=== PATIENT | male | born 1955 | race Caucasian/White ===

== ENCOUNTER 2016-11-27 01:14 | Inpatient (IN) ==
[2016-11-27] MEDS ORDERED: ASPIRIN 325 MG TABLET PO STA (02:10)
[2016-11-27] MEDS ORDERED: NITROGLYCERIN 2% OINT 1 INCH/GM PACK TOP STA (02:10)
[2016-11-27] MEDS ORDERED: MORPHINE 2 MG/1 ML SYRINGE IV STA (02:10)
[2016-11-27] MEDS ORDERED: ALUM/MAG/SIMETH/LIDO VISC 1:1 30 ML BOTTLE PO STA (02:10)
[2016-11-27] MEDS ORDERED: LORazepam 1 MG TABLET PO STA (02:10)
[2016-11-27] MEDS ORDERED: ONDANSETRON 4 MG/2 ML VIAL IV STA (02:10)
--- NOTE | 2016-11-27 02:14 | EKG Report ---
Stationary ECG Study [facility] ER Test Date: 11/27/2016 1:25:55 AM Pat Name: ADONAY DILLARD Department: Room: EDWAIT Gender: M Dyer And Washer: SR : 1955 Requested by: Rajat Flores Order Number: [id number] Cyrus MD: LINN RODRIGUEZ Intervals [place] Rate: 86 P: 35 ID: [id number] QRS: -19 QRSD: 122 T: -51 QT: 375 QTc: 419 Interpretive Statements SINUS RHYTHM WITH FREQUENT VENTRICULAR PREMATURE COMPLEXES INFERIOR MYOCARDIAL INFARCTION, OF INDETERMINATE AGE Electronically Signed On 11-27-16 04:36:32 UTILITY ASSEMBLER by LINN RODRIGUEZ [id number]
[2016-11-27] MEDS ORDERED: NITROGLYCERIN 2% OINT 1 INCH/GM PACK TOP ONE (02:24)
[2016-11-27] MEDS ORDERED: ONDANSETRON 4 MG/2 ML VIAL ONE (02:24)
[2016-11-27] MEDS ORDERED: MORPHINE 2 MG/1 ML SYRINGE ONE (02:25)
[2016-11-27] MEDS ORDERED: ALUM/MAG/SIMETH/LIDO VISC 1:1 30 ML BOTTLE PO ONE (02:25)
[2016-11-27] MEDS ORDERED: ASPIRIN 325 MG TABLET ONE (02:25)
[2016-11-27] MEDS ORDERED: LORazepam 1 MG TABLET ONE (02:25)
[2016-11-27 02:28] LABS: Basophils # 0.1 10*3/uL (0.0-0.2); Basophils % 0.5 % (0.0-0.8); Eosinophils # 0.7 10*3/uL (0.0-0.87); Eosinophils % 5.7 % (0.00-10.9); Hematocrit 47.8 VOL% (42.0-52.0); Immature Granulocytes % 0.6 %; Immature Granulocytes Absolute 0.07 #; Lymphocytes # 2.9 10*3/uL (1.4-4.0); Lymphocytes % 23.3 % (21.2-54.2); Mean Corpuscular HGB Conc 35.6 GM/DL (32-36); Mean Corpuscular Hemoglobin 31 PG (27-34); Mean Corpuscular Volume 88.4 FL (87-102); Mean Platelet Volume 11.9 FL (9.6-12.0); Monocytes # 0.8 10*3/uL (0.11-0.8); Monocytes % 6.7 % (1.7-12.7); Neutrophils # 7.8 10*3/uL (1.4-7.4); Neutrophils % 63.2 % (38.7-73.9); Platelet Count 194 10*3/uL (130-400); Red Blood Count 5.41 10*6/uL (3.8-5.5); Red Cell Distribution Width 12.6 % (9.3-17.3); White Blood Count 12.4 10*3/uL (4.5-13.71)
--- NOTE | 2016-11-27 02:36 | Emergency Department Note ---
I, Paradise Tinajero, am scribing for, and in the presence of, Rajat Monk MD 02:32. ILacho Charles R, MD, personally performed the services described in this documentation, ascribed by Paradise Tinajero in my presence, and it is both accurate and complete . Arrival - Arrival Chief Complaint: Chest Pain Stated Complaint: chest pain ED Nursing Triage Note: pt arrives pov from home with complaint of constant cp sharp going to the back, down the left arm with numbness and tingling to hands. pt states he took nitro x 2 at home with no relief, he stated he was diaphoretic when it started and weak. pt see's dr to, had stent x 2 placed with mi 2 mths ago. pt says his left eye is blurry. Mode of Arrival: Wheelchair Limitations: No Limitations Source: Patient Time Seen by Provider: 11/27/16 01:38 - History of Present Illness HPI Narrative: Pt is a 60 y/o male that came to the ED with c/o chest pain that radiates to his neck, back, and left arm that began 3 hours ago. Pt reports he has had previous [place] and sxs feel similar to his first [place]. Pt states he had 6 or 7 heart stents put in August 2016. He states he feels like needles are sticking in the back of his arms and the back of his right leg. Pt's vp human resources is Dr. To. Pt reports he was pulling the dash out of a truck when chest pain came on. Pt also complains of blurred vision in his left eye but is resolving now. Pt states he is having numbness to his left face, left arm, and left leg saying it feels weird. He reports he did take his aspiring earlier. No other complaints/pain in ED. Onset (ago): hour(s) Consistency: constant Severity: mild Severity scale (1-10): 2 Allergies/Adverse Reactions: Allergies Allergy/AdvReac Type Severity Reaction Status Date / Time No Known Allergies Allergy Unverified 11/27/16 01:27 Home Medications: Home Medications Medication Instructions Recorded Confirmed Type Allopurinol [Zyloprim] 300 mg PO DAILY 08/07/16 11/27/16 History Aspirin [Ecotrin] 325 mg PO DAILY 08/07/16 11/27/16 History Atorvastatin [Lipitor] 10 mg PO DAILY 08/07/16 11/27/16 History Benzonatate 100 mg PO TID 08/07/16 11/27/16 History Carvedilol [Coreg] 12.5 mg PO BID 08/07/16 11/27/16 History Duloxetine HCl [Cymbalta] 60 mg PO DAILY 08/07/16 11/27/16 History Esomeprazole Magnesium 40 mg PO DAILY 08/07/16 11/27/16 History [Esomeprazole] Fenofibrate [Tricor] 145 mg PO DAILY 08/07/16 11/27/16 History Furosemide 40 mg PO BID 08/07/16 11/27/16 History Glipizide [Glipizide Xl] 10 mg PO BID 08/07/16 11/27/16 History Ibuprofen 800 mg PO TID 08/07/16 11/27/16 History Lisinopril 2.5 mg PO DAILY 08/07/16 11/27/16 History Nitroglycerin [Nitroglycerin SL 0.4 mg SL Q5M PRN 08/07/16 11/27/16 History Tab] Tamsulosin [Flomax] 0.4 mg PO DAILY 08/07/16 11/27/16 History Vilazodone Hydrochloride [Viibryd] 20 mg PO DAILY 08/07/16 11/27/16 History sitaGLIPtin [Januvia] 100 mg PO DAILY 08/07/16 11/27/16 History Acetaminophen Tab [Tylenol Tab] 325 mg PO BID tablet 08/10/16 11/27/16 Rx Gabapentin Cap/Tab [Neurontin 100 mg PO TID #90 capsule 08/10/16 11/27/16 Rx Cap/Tab] Ticagrelor [Brilinta] 90 mg PO BID #60 tablet 08/10/16 11/27/16 Rx Venlafaxine [Effexor] 75 mg PO BID #60 tablet 08/10/16 11/27/16 Rx traMADol TAB [Ultram] 50 mg PO BID #30 tablet 08/10/16 11/27/16 Rx Review of System - Review of System 12 point system: reviewed and no additional remarkable complaints except as stated - Review of System Constitutional: Absent: fever Respiratory: Absent: cough Cardiovascular: Present: chest pain Gastrointestinal: Absent: abdominal pain Musculoskeletal: Present: arm pain (chest pain radiated to arms), back pain ( radiating from chest pain), neck pain (radiating from chest pain) Neurological: Present: numbness (numbness on left side of body from face to his leg). Absent: confusion Psychiatric: Absent: anxiety Medical,Surgical,& Family Hx - Medical History Cardio: History of: Hypertension, [place] Endocrine: History of: Diabetes Mellitus (NIDDM) - Surgical History Cardiac Surgeries: Sugical HX of: Cardiac Catheterization (stentsx4) - Social History Smoking Status: Current every day smoker Frequency of Alcohol Use: None Type of Drug Use: None Exam Vital Signs: Vital Signs Temperature 98.3 F 11/27/16 01:18 Pulse Rate 85 11/27/16 01:34 Respiratory Rate 20 11/27/16 01:41 Blood Pressure 143/82 11/27/16 01:34 O2 Sat by Pulse Oximetry 97 11/27/16 01:34 - General General appearance: alert, in no apparent distress - Head Head exam: Present: atraumatic, normocephalic - Eye Eye exam: Present: PERRL, EOMI - ENT ENT exam: Present: mucous membranes moist. Absent: mucous membranes dry - Neck Neck exam: Present: full ROM. Absent: tenderness - Chest Chest inspection: Present: symmetric chest wall rise. Absent: tenderness - Respiratory Respiratory exam: Present: normal lung sounds bilaterally, rales (bilateral rales), rhonchi (bilateral rhonchi) - Cardiovascular Cardiovascular exam: Present: irregular rhythm, normal heart sounds - Abdominal Exam Abdominal exam: Present: soft. Absent: tenderness - Extremities Exam Extremities exam: Present: full ROM. Absent: tenderness - Back Exam Back exam: Present: full ROM. Absent: tenderness - Neurological Exam Neurological exam: Present: alert, oriented X3, CN II-XII intact. Absent: motor sensory deficit - Psychiatric Psychiatric exam: Present: normal affect, normal mood - Skin Skin exam: Present: warm, dry Course - Consultations Consultation #1: Dr To will admit pt Time: 03:17 Results - Labs CBC & BMP: 11/27/16 01:31 11/27/16 01:31 Lab Results: I have reviewed the patients labs Labs: Laboratory Tests 11/27/16 01:31 Neut # (Auto) 7.8 H Laboratory Tests 11/27/16 01:31 Anion Gap 16.0 H BUN 25 H Creatinine 1.40 H Glucose 215 H - Diagnostic Findings Procedure: Chest x-ray: image reviewed by me (acute findings), CT: image reviewed by me, report reviewed by me (CT head is negative) Disposition Clinical Impression: Chest pain, Unstable angina pectoris, CAD (coronary artery disease) Case discussed with: patient Disposition: Still a Patient Condition: Stable Time of Disposition: 03:18
[2016-11-27 02:37] LABS: D-Dimer <= 0.5 MG/L FEU; PT Patient Result 10.6 SECS
[2016-11-27 02:44] LABS: Albumin 4.5 G/DL (3.4-5.0); Bilirubin,Total 0.6 MG/DL (0.2-1.0); Calcium 9.5 MG/DL (8.5-10.1); Osmolality,Calculated 292.1 MOS/KG (273-304); Total Protein 6.9 G/DL (6.4-8.3)
[2016-11-27] MEDS ORDERED: ENOXAPARIN 100 MG/ML SYRINGE SUBCUT STA (03:16)
[2016-11-27] MEDS ORDERED: ENOXAPARIN 100 MG/ML SYRINGE SUBCUT ONE (03:33)
[2016-11-27] MEDS ORDERED: NITROGLYCERIN SL 0.4 MG TABLET SL PRN (04:09)
[2016-11-27] MEDS ORDERED: DEXTROSE 50% 25 GM/50 ML VIAL IV PRN (04:09)
[2016-11-27] MEDS ORDERED: GLUCAGON 1 MG VIAL IM PRN (04:09)
[2016-11-27] MEDS ORDERED: MAGNESIUM SULF RIDER 2 GM in PREMIX 1 EACH IV PRN ×2 (04:09→19:36)
[2016-11-27] MEDS ORDERED: MAGNESIUM SULF RIDER 4 GM in PREMIX 1 EACH IV PRN (04:09)
[2016-11-27] MEDS ORDERED: POTASSIUM CHLORIDE 20 MEQ TABLET PO PRN (04:09)
[2016-11-27] MEDS ORDERED: ONDANSETRON 4 MG/2 ML VIAL IV PRN (04:09)
[2016-11-27] MEDS ORDERED: SODIUM CHLORIDE 0.9% 1,000 ML IV SCH (04:09)
--- NOTE | 2016-11-27 06:37 | CT Report ---
CT head/brain wo con Indication: Left facial numbness. CT BRAIN WITHOUT CONTRAST DLP: 1134 mGy*cm Comparison: None. Date of admission: 11/27/2016. Technique: Axial noncontrast CT images of the brain were obtained. Findings: No acute hemorrhage, mass or mass effect. Generalized atrophy and patchy periventricular white matter hypodensity is present throughout both convexities. Cortical quiroz-white junction and structures of the basal ganglia are well-defined. No bone lesions are shown. Internal auditory canals are symmetric. Mild mucosal thickening involves the maxillary sinuses. Impression: No acute intracranial pathology. Generalized atrophy and changes consistent with microvascular disease. Mild maxillary sinusitis, chronic appearing. PROCEDURE INTERPRETED AT [facility] DEPARTMENT OF RADIOLOGY Final Report Signed by: Oswaldo Al M.D.
--- NOTE | 2016-11-27 06:57 | XRay Report ---
XR chest 1V portable Indication: Chest pain. Chest one view: Comparison 08/07/16. Heart size and mediastinal contour normal. Diffuse parabronchial thickening is present without focal pneumonia. Pleural spaces are clear. Impression: Airways disease such as bronchitis or viral syndrome. PROCEDURE INTERPRETED AT [facility] DEPARTMENT OF RADIOLOGY Final Report Signed by: Oswaldo Al M.D.
--- NOTE | 2016-11-27 08:27 | EKG Report ---
Stationary ECG Study [facility] ER Test Date: 11/27/2016 8:25:54 AM Pat Name: ADONAY DILLARD Department: Room: EDWAIT Gender: M Rn Private Duty: ZIYAD : 1955 Requested by: Rajat Flores Order Number: [id number] Reading MD: EKTA COCHRAN Intervals [place] Rate: 70 P: 999 NE: 0 QRS: -40 QRSD: 123 T: -68 QT: 392 QTc: 413 Interpretive Statements SINUS RHYTHM INFERIOR MYOCARDIAL INFARCTION, OF INDETERMINATE AGE Electronically Signed On 11-29-16 12:58:24 CLASSIFICATION COUNSELOR by EKTA COCHRAN [id number]
--- NOTE | 2016-11-27 08:46 | EKG Report ---
Stationary ECG Study [facility] ER Test Date: 11/27/2016 5:07:51 AM Pat Name: ADONAY DILLARD Department: Room: EDWAIT Gender: M Trading Analyst: : 1955 Requested by: Rajat Flores Order Number: [id number] Reading MD: EKTA COCHRAN Intervals [place] Rate: 78 P: 999 WI: 0 QRS: -40 QRSD: 124 T: -53 QT: 401 QTc: 435 Interpretive Statements SINUS RHYTHM WITH PVCs INFERIOR MYOCARDIAL INFARCTION, OF INDETERMINATE AGE Electronically Signed On 11-29-16 12:42:01 DRUG ENFORCEMENT AGENT by EKTA COCHRAN [id number]
[2016-11-27] MEDS ORDERED: VILAZODONE HYDROCHLORIDE 20 MG PO SCH (09:00)
[2016-11-27] MEDS ORDERED: NON-FORMULARY MEDICATION (Esomeprazole Magnesium [Esomeprazole] 40 MG) PO SCH (09:00)
[2016-11-27] MEDS: NITROGLYCERIN 2% OINT 1 INCH/GM PACK TOP SCH ×3 (12:38→17:51)
[2016-11-27] MEDS: INSULIN REGULAR 100 UNIT/ML SUBCUT SCH ×3 (12:39→20:59)
[2016-11-27] MEDS: ASPIRIN EC 325 MG TABLET PO SCH (12:53)
[2016-11-27] MEDS: TAMSULOSIN 0.4 MG CAPSULE PO SCH (12:54)
[2016-11-27] MEDS: TICAGRELOR 90 MG TABLET PO SCH ×2 (12:54→20:57)
[2016-11-27] MEDS: GABAPENTIN 100 MG CAPSULE PO SCH ×3 (12:55→20:58)
[2016-11-27] MEDS: IBUPROFEN 800 MG TABLET PO SCH ×3 (12:55→20:57)
[2016-11-27] MEDS: PANTOPRAZOLE 40 MG TABLET PO SCH (12:56)
[2016-11-27] MEDS: ACETAMINOPHEN 325 MG TABLET PO SCH ×2 (12:56→20:56)
[2016-11-27] MEDS: BENZONATATE 100 MG CAPSULE PO SCH ×3 (12:56→20:59)
[2016-11-27] MEDS: traMADol 50 MG TABLET PO SCH ×2 (12:57→20:57)
[2016-11-27] MEDS: VENLAFAXINE 75 MG TABLET PO SCH ×2 (12:58→20:57)
[2016-11-27] MEDS: CARVEDILOL 12.5 MG TABLET PO SCH ×2 (12:58→20:58)
[2016-11-27] MEDS: DULoxetine 30 MG CAPSULE PO SCH (12:58)
[2016-11-27] MEDS: sitaGLIPtin 100 MG TABLET PO SCH (12:59)
[2016-11-27] MEDS: FUROSEMIDE 40 MG TABLET PO SCH (13:00)
[2016-11-27] MEDS: FENOFIBRATE 145 MG TABLET PO SCH (13:01)
[2016-11-27] MEDS: ATORVASTATIN 10 MG TABLET PO SCH (13:01)
[2016-11-27] MEDS: LISINOPRIL 2.5 MG TABLET PO SCH (13:01)
[2016-11-27] MEDS: ALLOPURINOL 300 MG TABLET PO SCH (13:18)
[2016-11-27] MEDS: ENOXAPARIN 100 MG/ML SYRINGE SUBCUT SCH (15:24)
[2016-11-27] MEDS: MORPHINE 2 MG/1 ML SYRINGE IV PRN ×2 (17:23→21:55)
--- NOTE | 2016-11-27 19:33 | Cardiology History & Physical ---
Lonnie, Osiris Munoz RN, am scribing for, and in the presence of, Alin To MD 19:31. Assessment and Plan - Time spent with patient Time spent with patient: Greater than 30 minutes (1) Chest pain Status: Acute Assessment and plan: Differential diagnosis includes coronary disease, GI or muscle skeletal pain. He is very anxious and worried it is the heart. 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 Plan/recommendations: Left heart cath and possible PTCA /or stent in the a.m. Consult pain management, total patient care, see if they have any suggestions to help with his pains in various parts of his body. May be could have fibromyalgia. Consider consulting Dr. Greer regarding possible sleep apnea. Left heart cath and possible PTCA or stent were discussed with the patient. The risk of the procedure include but are not limited to a small risk of injury to the vessel, abnormal heart rhythm, stroke, heart attack, need for emergent surgery, contrast reaction, restenosis, or . The patient voices understanding, agrees with the plan, and desires to proceed with the heart catheterization. Current Visit: Yes (2) CAD (coronary artery disease) Status: Chronic Current Visit: Yes (3) Diabetes Status: Chronic Current Visit: No (4) Hypertension Status: Chronic Current Visit: No History of Present Illness Chief complaint: chest pain History of present illness: Mr. Casiano is a 60 year old male who I follow with a history of CAD, HTN, and NIDDM. He has had several heart caths in the past, the most recent being in July 2016 with the following findings: Significant disease in the proximal LAD--90%, tubular, LOGAN grade 3 flow Moderately moderate disease in this left Main-30%, smooth Occluded, old, posterior lateral branch the right coronary Mild to most moderate disease in other vessels-nothing critical in other areas Significant, 70%, LOGAN grade 3 flow ostial disease in the second diagonal- predilated prior to placement of the stent across the diagonal Moderately severe global left systolic dysfunction, LVEF about 30% Moderate LV enlargement Moderate elevation of LVEDP, 28 mmHg Status post successful stenting of the proximal LAD --drug eluting stent, 2.75 x 23 mm Bebe Ocampo, after pre-dilating with a 2.5 x 20 mm NC track and predilate and the diagonal which is jailed by the stent and has an ostial lesion with a 2.0 x 15 mm NC quiet apex Angiogram the right femoral artery Intracoronary nitroglycerin, 400 g intracoronary, 2, given in the procedure because of some apparent spasm-resolved with the treatment Aggrastat bolus and infusion-for PCI in the setting of unstable angina Angio-Seal of the right femoral artery-successful. Family history includes father with cancer and father, mother, and siblings with heart disease, diabetes, and hypertension. He continues to smoke approximately 5 cigarettes/day. He reports he has continued to be tired since his last heat cath, but this has gotten worse over the last several days. Last night around 9:30, he developed left sided chest pain that radiated up in to the left side of his neck and down his left arm. He rated this pain as a 10 on a scale of 1-10, and described it as a sharp, stabbing pain. He says the pain has not completely gone away, but after several hours it did lessen some. Nothing helped the pain go away, but moving around made it worse. He also had dyspnea, dizziness, palpitations, nausea and vomiting, diaphoresis, and numbness of both hands and his right leg associated with his pain. He also had a headache and lost vision in his left eye. He rates his current pain as a 7 and it is in his left chest and up to his left neck. He also continues to have the numbness described above. He reports the vision in his left eye is returning, but it is still blurry. He is using oxygen via NBP and reports being short of breath, but is in no distress. His pressures have been in 90/60 range, sinus rhythm with heart rates in the 80' s. Potassium is 4.0, BUN and creatinine 25 and 1.4. Troponins have been negative. He is being seen in the ED while awaiting a bed on the floor. Home Medications Medication Instructions Recorded Confirmed Type Allopurinol [Zyloprim] 300 mg PO DAILY 08/07/16 11/27/16 History Aspirin [Ecotrin] 325 mg PO DAILY 08/07/16 11/27/16 History Atorvastatin [Lipitor] 10 mg PO DAILY 08/07/16 11/27/16 History Benzonatate 100 mg PO TID 08/07/16 11/27/16 History Carvedilol [Coreg] 12.5 mg PO BID 08/07/16 11/27/16 History Duloxetine HCl [Cymbalta] 60 mg PO DAILY 08/07/16 11/27/16 History Esomeprazole Magnesium 40 mg PO DAILY 08/07/16 11/27/16 History [Esomeprazole] Fenofibrate [Tricor] 145 mg PO DAILY 08/07/16 11/27/16 History Furosemide 40 mg PO BID 08/07/16 11/27/16 History Glipizide [Glipizide Xl] 10 mg PO BID 08/07/16 11/27/16 History Ibuprofen 800 mg PO TID 08/07/16 11/27/16 History Lisinopril 2.5 mg PO DAILY 08/07/16 11/27/16 History Nitroglycerin [Nitroglycerin SL 0.4 mg SL Q5M PRN 08/07/16 11/27/16 History Tab] Tamsulosin [Flomax] 0.4 mg PO DAILY 08/07/16 11/27/16 History Vilazodone Hydrochloride [Viibryd] 20 mg PO DAILY 08/07/16 11/27/16 History sitaGLIPtin [Januvia] 100 mg PO DAILY 08/07/16 11/27/16 History Acetaminophen Tab [Tylenol Tab] 325 mg PO BID tablet 08/10/16 11/27/16 Rx Gabapentin Cap/Tab [Neurontin 100 mg PO TID #90 capsule 08/10/16 11/27/16 Rx Cap/Tab] Ticagrelor [Brilinta] 90 mg PO BID #60 tablet 08/10/16 11/27/16 Rx Venlafaxine [Effexor] 75 mg PO BID #60 tablet 08/10/16 11/27/16 Rx traMADol TAB [Ultram] 50 mg PO BID #30 tablet 08/10/16 11/27/16 Rx Magnesium Chloride [Mag Delay] 64 mg PO BID 11/27/16 11/27/16 History Allergies Allergy/AdvReac Type Severity Reaction Status Date / Time No Known Allergies Allergy Unverified 11/27/16 01:27 - Constitutional Constitutional: Present: as per HPI - EENT Eyes: Present: blurry vision, loss of vision (left eye) Nose, mouth and throat: Present: headache(s), neck pain. Absent: epistaxis - Cardiovascular Cardiovascular: Present: chest pain at rest, chest pain with activity, diaphoresis, dyspnea on exertion, radiating jaw, neck or arm pain, lightheadedness, palpitations. Absent: dyspnea, edema - Respiratory Respiratory: Present: dyspnea on exertion. Absent: cough, hemoptysis - Gastrointestinal Gastrointestinal: Present: nausea, vomiting. Absent: abdominal pain, constipation, diarrhea, hematemesis, hematochezia - Genitourinary Genitourinary: Absent: difficulty urinating, dysuria, flank pain - Musculoskeletal Musculoskeletal: Present: arthralgias - Neurological Neurological: Present: dizziness, headache(s), numbness. Absent: abnormal gait , confusion, frequent falls, syncope, tremor(s) - Psychiatric Psychiatric: Present: anxiety - Endocrine Endocrine: Present: fatigue - Hematologic/Lymphatic Hematologic/Lymphatic: Absent: easy bleeding Medical,Surgical,& Family Hx - Medical History Cardio: History of: Hypertension, [place] Endocrine: History of: Diabetes Mellitus (NIDDM) - Surgical History Cardiac Surgeries: Sugical HX of: Cardiac Catheterization (most recent 07/26, with stents) - Family History Family History: Reports;: Family Cancer (father), Family Diabetes (father mother siblings), Family Heart Disease (father mother siblings), Family Hypertension (father mother siblings) - Social History Smoking Status: Current every day smoker Have you smoked in the last 12 months: Yes Frequency of Alcohol Use: None Type of Drug Use: None Functional capacity: independent ambulation Cardiology Physical Exam - Constitutional Vitals: Vital Signs Temp Pulse Resp BP Pulse Ox 98.3 F 72 20 94/63 98 11/27/16 01:18 11/27/16 06:42 11/27/16 06:42 11/27/16 06:42 11/27/16 06:42 General appearance: normal weight, no acute distress Exam: No chest wall tenderness or shoulder tenderness, neck tenderness or abdominal tenderness. Pressing on these areas do not reproduce his pain - Head Head exam: Present: normal inspection - Eye Eye exam: Absent: periorbital swelling, laceration to eyelids Pupils: Present: AMILCAR - Neck Neck exam: Present: tenderness - Respiratory Respiratory exam: Present: clear to auscultation bilaterally. Absent: accessory muscle use - Cardiovascular Cardiovascular exam: Present: regular rate and rhythm - GI/Abdominal GI/Abdominal exam: Present: normal bowel sounds, soft. Absent: tenderness - Extremities Exam Extremities exam: Present: calf tenderness (right). Absent: edema - Neurological Exam Neurological exam: Present: alert, oriented X3 - Psychiatric Psychiatric exam: Present: normal mood - Skin Skin exam: Present: warm, dry Result/EKG - Labs CBC & BMP: 11/27/16 01:31 11/27/16 01:31 Lab Results: I have reviewed the past 24 hour labs Labs: Laboratory Results - last 24 hr 11/27/16 11/27/16 11/27/16 05:11 08:31 09:09 POC Glucose 187 H Troponin I < 0.015 < 0.015 - EKG EKG results: interpreted by me EKG shows: sinus rhythm Quality Measures - VTE Deep Vein Thrombosis/Pulmonary Embolism Present on Admission: No - Stroke Onset of Symptoms Date: 11/26/16 Onset of Symptoms Time: 23:30 IZuleika Dale, MD, personally performed the services described in this documentation, ascribed by Osiris Munoz RN in my presence, and it is both accurate and complete 931 .
--- NOTE | 2016-11-27 19:34 | History and Physical Update ---
Sedation H&P Update - History and Physical H&P was reviewed, the patient examined and there: are no changes in the patients condition since last H&P was completed. - Dictation Physical: refer to H&P completed by admitting physician - Physical Exam Mental Status: alert and oriented - Sedation Plan for Sedation: minimal Patient Consent: Procedure disscussed with patient and patinet has consented., Risks and benefits were discussed with patient,including infection,, bleeding, injury to surrounding structures, seizure, temporary nerve, Patient understands and accepts potential risks/benefits and agrees to, proceed. ASA Class: II Airway Assessment: Class III: Soft palate, base of uvula visible
[2016-11-27] MEDS ORDERED: POTASSIUM CHLORIDE RIDER 10 MEQ in PREMIX 1 EACH IV PRN (19:36)
[2016-11-27] MEDS ORDERED: diphenhydrAMINE CAP 25 MG CAPSULE PO ONE (19:36)
[2016-11-27] MEDS ORDERED: DIAZEPAM 5 MG TABLET PO ONE (19:36)
[2016-11-28] MEDS: NITROGLYCERIN 2% OINT 1 INCH/GM PACK TOP SCH ×4 (06:06→17:49)
[2016-11-28] MEDS: ENOXAPARIN 100 MG/ML SYRINGE SUBCUT SCH (06:06)
[2016-11-28 06:53] LABS: Albumin 3.6 G/DL (3.4-5.0); Bilirubin,Total 1.3 MG/DL (0.2-1.0); Calcium 8.9 MG/DL (8.5-10.1); Osmolality,Calculated 292.7 MOS/KG (273-304); Potassium 4.4 MMOL/L (3.5-5.1); Total Protein 5.6 G/DL (6.4-8.3)
[2016-11-28] MEDS ORDERED: diphenhydrAMINE CAP 25 MG CAPSULE ONE (07:06)
[2016-11-28] MEDS ORDERED: DIAZEPAM 5 MG TABLET ONE (07:06)
[2016-11-28] MEDS: TICAGRELOR 90 MG TABLET PO SCH ×3 (07:20→20:12)
[2016-11-28] MEDS: LISINOPRIL 2.5 MG TABLET PO SCH ×2 (07:21→11:04)
[2016-11-28] MEDS ORDERED: ASPIRIN EC 325 MG TABLET PO ONE (07:30)
[2016-11-28] MEDS ORDERED: CARVEDILOL 12.5 MG TABLET PO ONE (07:30)
[2016-11-28] MEDS ORDERED: LIDOCAINE 1% 20 ML VIAL ONE (07:39)
--- NOTE | 2016-11-28 07:47 | EKG Report ---
Stationary ECG Study [facility] Test Date: 11/28/2016 7:45:35 AM Pat Name: ADONAY DILLARD Department: Room: 280 Gender: M Pony Worker: : 1955 Requested by: Alin To Order Number: [id number] Reading MD: EKTA COCHRAN Intervals [place] Rate: 77 P: 58 IA: 240 QRS: -31 QRSD: 124 T: -33 QT: 390 QTc: 422 Interpretive Statements SINUS RHYTHM WITH PROLONGED IA INTERVAL WITH OCCASIONAL VENTRICULAR PREMATURE COMPLEXES MARKED LEFT AXIS DEVIATION PROBABLE INFERIOR MYOCARDIAL INFARCTION, OF INDETERMINATE AGE Electronically Signed On 11-29-16 13:30:41 URINALYSIS TECHNICIAN by EKTA COCHRAN [email or web address]
--- NOTE | 2016-11-28 07:50 | XRay Report ---
XR chest 1V portable Indication: Shortness of breath. Chest one view: Comparison yesterday. Lungs remain hypoinflated with continued atelectasis. No new infiltrates are seen. Heart size remains normal. Mediastinal contours unremarkable. Impression: No appreciable change. PROCEDURE INTERPRETED AT [facility] DEPARTMENT OF RADIOLOGY Final Report Signed by: Oswaldo Al M.D.
[2016-11-28] MEDS ORDERED: MEPERIDINE 25 MG/1 ML VIAL ONE (08:10)
[2016-11-28] MEDS ORDERED: MIDAZOLAM 2 MG/2 ML VIAL ONE (08:11)
--- NOTE | 2016-11-28 09:01 | Operative Note ---
Date of procedure: 11/28/16 Procedure Preformed: Left heart cath, left ventriculography, coronary arteriography, , Angio-Seal of the right femoral artery, Surgeon / Physician: Alin To Furnace Setter: Mounika Reeves Post-op diagnosis: same (Recurrent chest pain several months after his stent. Severe, worrisome for progression of disease or early restenosis, patient has severe anxiety and is worried is related to his heart) Findings: Impression: No significant restenosis of the prior stent or angioplasty site of the LAD/ diagonal Old disease involving distal LAD, a branch of an obtuse marginal, the posterior branch, and the distal left main-if anything, these lesions appear to be slightly improved-possibly due to better compliance with his lipid therapy and/ or diabetes treatment Moderately severe global left systolic dysfunction, LVEF about 30% Moderate LV enlargement Moderate elevation of LVEDP, 18-20 mmHg Angio-Seal of the right femoral artery-successful Plan/recommendations: The patient will have risk factors optimized. The patient will be on antiplatelet medications to include aspirin indefinitely and Plavix or Brilinta for at least a year. Regarding his chest pain and various areas of his body pain, this could be fibromyalgia R and/or anxiety. I will review his anxiety medicines and adjust as needed. Also, will increase his gabapentin to a slightly higher dose. I consulted Dr. Bhavin Espinoza, pain specialist, to see and evaluate and treat his eating as best. I reassured the patient that there is no critical disease which would explain his severe chest pain. follow-up will be scheduled. Addenda: I saw the patient post-cath. the groin puncture site and distal pulse are stable. vital signs are stable and the patient will be observed closely overnight. Specimens: none sent Estimated blood loss: minimal Condition: stable Anesthesia: local, conscious sedation Disposition: floor
--- NOTE | 2016-11-28 09:47 | Cardiology Operative Report ---
Date of Procedure:: 11/28/16 Post-op diagnosis: same (Recurrent chest pain several months after his stent. Severe, worrisome for progression of disease or early restenosis, patient has severe anxiety and is worried is related to his heart) Procedure: Date of procedure: 11/28/16 Procedure Preformed: Left heart cath, left ventriculography, coronary arteriography, , Angio-Seal of the right femoral artery, Surgeon / Physician: Alin To Recording Studio Setup Worker: Mounika Reeves Post-op diagnosis: same (Recurrent chest pain several months after his stent. Severe, worrisome for progression of disease or early restenosis, patient has severe anxiety and is worried is related to his heart) procedure: The patient was prepped and draped in usual manner. Entered the right femoral artery via the Seldinger technique. I used a sheath and then used a JL4 and engaged left coronary. Multiple views were taken. I then exchanged for a JR4. Multiple views of the right coronary were taken. I then exchanged for an angled pigtail. I crossed the valve. Left ventricular end-diastolic pressures measured. Left ventriculography was done. Left ventricle pullback was done. The catheters were then removed from the patient. Hemodynamic data: LVEDP was 18 mmHg. Angiographic data: The left main coronary was large and had moderate distal disease. Probably 30% tubular narrowing. The left anterior descending artery was large. There were 2 major diagonals. At the site of the stent, the artery was widely patent. The distal LAD had significant disease but it was small at that point. The origin of the Giovanna diagonal and one view 6 suggestive narrowed but in the past few it was widely patent and had minimal narrowing. I believe the first few was a mock effect. The left circumflex system was moderate to large. It had one major obtuse marginal which branch. 1 of the branches had a 90% ostial narrowing. otherwise there are minimal luminal irregularities in the circumflex The right coronary artery was large in size, dominant vessel with the PDA. There were minimal luminal irregularities throughout this vessel. Post lateral branch was occluded. PIMENTEL left ventriculography revealed moderately severe global left ventricular systolic dysfunction, the overall ejection fraction was about 30%. There is moderate LV enlargement. There is no significant mitral regurgitation. Follow-through angiogram of the right femoral artery revealed the puncture site to be in a large vessel, above the bifurcation. It was suitable for Angio-Seal. Findings: Impression: No significant restenosis of the prior stent or angioplasty site of the LAD/ diagonal Old disease involving distal LAD, a branch of an obtuse marginal, the posterior branch, and the distal left main-if anything, these lesions appear to be slightly improved-possibly due to better compliance with his lipid therapy and/ or diabetes treatment Moderately severe global left systolic dysfunction, LVEF about 30% Moderate LV enlargement Moderate elevation of LVEDP, 18-20 mmHg Angio-Seal of the right femoral artery-successful Plan/recommendations: The patient will have risk factors optimized. The patient will be on antiplatelet medications to include aspirin indefinitely and Plavix or Brilinta for at least a year. Regarding his chest pain and various areas of his body pain, this could be fibromyalgia R and/or anxiety. I will review his anxiety medicines and adjust as needed. Also, will increase his gabapentin to a slightly higher dose. I consulted Dr. Bhavin Espinoza, pain specialist, to see and evaluate and treat his eating as best. I reassured the patient that there is no critical disease which would explain his severe chest pain. follow-up will be scheduled. Addenda: I saw the patient post-cath. the groin puncture site and distal pulse are stable. vital signs are stable and the patient will be observed closely overnight. Specimens: none sent Estimated blood loss: minimal Condition: stable Anesthesia: local, conscious sedation Disposition: floor Anesthesia: local, minimal conscious sedation Surgeon / Physician: Alin To Recording Studio Setup Worker: other Estimated blood loss: minimal Specimens: none sent Condition: stable Disposition: floor
[2016-11-28] MEDS: SODIUM CHLORIDE 0.9% 1,000 ML IV SCH (10:00)
[2016-11-28] MEDS: PANTOPRAZOLE 40 MG TABLET PO SCH (11:01)
[2016-11-28] MEDS: traMADol 50 MG TABLET PO SCH ×2 (11:01→20:11)
[2016-11-28] MEDS: FENOFIBRATE 145 MG TABLET PO SCH (11:01)
[2016-11-28] MEDS: DULoxetine 30 MG CAPSULE PO SCH (11:01)
[2016-11-28] MEDS: ALLOPURINOL 300 MG TABLET PO SCH (11:01)
[2016-11-28] MEDS: TAMSULOSIN 0.4 MG CAPSULE PO SCH (11:01)
[2016-11-28] MEDS: ATORVASTATIN 10 MG TABLET PO SCH (11:01)
[2016-11-28] MEDS: GABAPENTIN 300 MG CAPSULE PO SCH ×3 (11:01→20:12)
[2016-11-28] MEDS: VENLAFAXINE 75 MG TABLET PO SCH ×2 (11:01→20:12)
[2016-11-28] MEDS: sitaGLIPtin 100 MG TABLET PO SCH (11:02)
[2016-11-28] MEDS: IBUPROFEN 800 MG TABLET PO SCH ×3 (11:02→20:12)
[2016-11-28] MEDS: BENZONATATE 100 MG CAPSULE PO SCH ×3 (11:02→20:12)
[2016-11-28] MEDS: INSULIN REGULAR 100 UNIT/ML SUBCUT SCH ×4 (11:03→21:41)
[2016-11-28] MEDS: CARVEDILOL 12.5 MG TABLET PO SCH ×2 (11:03→20:12)
[2016-11-28] MEDS: ASPIRIN EC 325 MG TABLET PO SCH (11:03)
[2016-11-28] MEDS: ACETAMINOPHEN 325 MG TABLET PO SCH ×2 (11:05→20:12)
--- NOTE | 2016-11-28 12:58 | Sleep Medicine Consult ---
Assessment and Plan (1) Unspecified sleep apnea Status: Acute Assessment and plan: This patient does have a history of loud snoring and physical features that would predispose him to sleep apnea. 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 I have recommended polysomnography to the patient. Untreated sleep apnea can put him at greater risk for complications of diabetes and from heart disease. 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 I will need to speak with him about this and hopefully he will reconsider. 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 Current Visit: Yes (2) CAD (coronary artery disease) Status: Chronic Assessment and plan: I reviewed the Swain data from Lancet 2004 with the patient to their understanding. This study proved significant reduction in the risk of fatal and nonfatal cardiac events in patients with severe obstructive sleep apnea compliant with CPAP, in comparison with those noncompliant with CPAP for severe sleep apnea. Current Visit: Yes (3) Diabetes Status: Chronic Assessment and plan: The prevalence rate for obstructive sleep apnea in patients with type 2 diabetes can be as high as 86%. Those patients with moderate to severe obstructive sleep apnea are at a greater risk for diabetic nephropathy and neuropathy. Compliance with CPAP therapy for these patients can lead to improvement in glycemic control and improvement in insulin sensitivity. Current Visit: No (4) Hypertension Status: Chronic Assessment and plan: The prevalence rate for obstructive sleep apnea patients with hypertension is 35 %. That rate can be as high as 80% in patients who require 4 or more medications for blood pressure control. Current Visit: No History of Present Illness History of present illness: Mr. Casiano is a 60 year old male with a history of coronary artery disease and previous stents he was admitted for atypical chest pain and underwent cardiac evaluation. Dr. To asked sleep medicine to see the patient because of a history of snoring and physical features concerning for sleep apnea. 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 He usually drives until about 4 the morning and then sleeps from or the morning until about 9. He denies any problems with daytime fatigue or sleepiness. He denies ever awakening from sleep short of breath. He does have some restlessness of his legs that bothers him while awake and sometimes while asleep. He has never had a sleep evaluation in the past. Home Medications Medication Instructions Recorded Confirmed Type Allopurinol [Zyloprim] 300 mg PO DAILY 08/07/16 11/27/16 History Aspirin [Ecotrin] 325 mg PO DAILY 08/07/16 11/27/16 History Atorvastatin [Lipitor] 10 mg PO DAILY 08/07/16 11/27/16 History Benzonatate 100 mg PO TID 08/07/16 11/27/16 History Carvedilol [Coreg] 12.5 mg PO BID 08/07/16 11/27/16 History Duloxetine HCl [Cymbalta] 60 mg PO DAILY 08/07/16 11/27/16 History Esomeprazole Magnesium 40 mg PO DAILY 08/07/16 11/27/16 History [Esomeprazole] Fenofibrate [Tricor] 145 mg PO DAILY 08/07/16 11/27/16 History Furosemide 40 mg PO BID 08/07/16 11/27/16 History Glipizide [Glipizide Xl] 10 mg PO BID 08/07/16 11/27/16 History Ibuprofen 800 mg PO TID 08/07/16 11/27/16 History Lisinopril 2.5 mg PO DAILY 08/07/16 11/27/16 History Nitroglycerin [Nitroglycerin SL 0.4 mg SL Q5M PRN 08/07/16 11/27/16 History Tab] Tamsulosin [Flomax] 0.4 mg PO DAILY 08/07/16 11/27/16 History Vilazodone Hydrochloride [Viibryd] 20 mg PO DAILY 08/07/16 11/27/16 History sitaGLIPtin [Januvia] 100 mg PO DAILY 08/07/16 11/27/16 History Acetaminophen Tab [Tylenol Tab] 325 mg PO BID tablet 08/10/16 11/27/16 Rx Gabapentin Cap/Tab [Neurontin 100 mg PO TID #90 capsule 08/10/16 11/27/16 Rx Cap/Tab] Ticagrelor [Brilinta] 90 mg PO BID #60 tablet 08/10/16 11/27/16 Rx Venlafaxine [Effexor] 75 mg PO BID #60 tablet 08/10/16 11/27/16 Rx traMADol TAB [Ultram] 50 mg PO BID #30 tablet 08/10/16 11/27/16 Rx Magnesium Chloride [Mag Delay] 64 mg PO BID 11/27/16 11/27/16 History Allergies Allergy/AdvReac Type Severity Reaction Status Date / Time No Known Allergies Allergy Unverified 11/27/16 01:27 Review of systems: Otherwise unremarkable from a sleep standpoint. Exam (Pulmonay) H&P - Constitutional Vitals: Period Temp Pulse Resp BP Sys/White Pulse Ox Last 24 Hr 96.0 F-98.4 F 42-79 16-20 105-119/62-75 95-99 Exam: Patient is alert and responsive in no acute distress. Pupils equal round reactive to light and accommodation. Extraocular movements intact. Oropharynx with a class IV Mallampati exam. Neck is supple without adenopathy or thyromegaly. Chest was symmetrical breath sounds without focal wheezes, rhonchi , or rales. Cardiac exam reveals a regular rhythm without murmur or gallop. Abdomen obese nontender without palpable hepatosplenomegaly or mass. Extremities are without clubbing cyanosis or edema. Neurologically, he is grossly intact. He moves all extremities with good strength. Medical,Surgical,& Family Hx - Medical History Cardio: History of: Hypertension, [place] Endocrine: History of: Diabetes Mellitus (NIDDM) - Surgical History Cardiac Surgeries: Sugical HX of: Cardiac Catheterization (most recent 07/26, with stents) - Family History Family History: Reports;: Family Cancer (father), Family Diabetes (father mother siblings), Family Heart Disease (father mother siblings), Family Hypertension (father mother siblings) - Social History Smoking Status: Current every day smoker Frequency of Alcohol Use: None Type of Drug Use: None Results - Labs CBC & BMP: 11/27/16 01:31 11/28/16 05:29 Lab Results: I have reviewed the past 24 hour labs Quality Measures - VTE Contraindication to Pharmacological VTE Prophylaxis: High Risk of Bleeding - Stroke Onset of Symptoms Date: 11/26/16 Onset of Symptoms Time: 23:30
[2016-11-28] MEDS: MORPHINE 2 MG/1 ML SYRINGE IV PRN (20:10)
[2016-11-29] MEDS: NITROGLYCERIN 2% OINT 1 INCH/GM PACK TOP SCH ×3 (00:31→12:09)
[2016-11-29 05:34] LABS: Basophils # 0.1 10*3/uL (0.0-0.2); Basophils % 0.7 % (0.0-0.8); Eosinophils # 0.6 10*3/uL (0.0-0.87); Eosinophils % 8.3 % (0.00-10.9); Hematocrit 42.4 VOL% (42.0-52.0); Hemoglobin 14.4 GM/DL (14.0-18.0); Immature Granulocytes % 0.4 %; Immature Granulocytes Absolute 0.03 #; Lymphocytes # 2.3 10*3/uL (1.4-4.0); Lymphocytes % 33.6 % (21.2-54.2); Mean Corpuscular Hemoglobin 31 PG (27-34); Mean Platelet Volume 12.4 FL (9.6-12.0); Monocytes # 0.4 10*3/uL (0.11-0.8); Neutrophils # 3.5 10*3/uL (1.4-7.4); Platelet Count 143 10*3/uL (130-400); Red Blood Count 4.71 10*6/uL (3.8-5.5); Red Cell Distribution Width 12.6 % (9.3-17.3); White Blood Count 6.9 10*3/uL (4.5-13.71)
[2016-11-29 06:07] LABS: Calcium 8.7 MG/DL (8.5-10.1); Osmolality,Calculated 291.8 MOS/KG (273-304); Potassium 4.1 MMOL/L (3.5-5.1)
[2016-11-29] MEDS: SODIUM CHLORIDE 0.9% 1,000 ML IV SCH (07:17)
[2016-11-29] MEDS: GABAPENTIN 100 MG CAPSULE PO SCH (07:19)
--- NOTE | 2016-11-29 07:39 | EKG Report ---
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
[2016-11-29] MEDS: INSULIN REGULAR 100 UNIT/ML SUBCUT SCH ×2 (08:31→11:53)
[2016-11-29] MEDS: PANTOPRAZOLE 40 MG TABLET PO SCH (09:07)
[2016-11-29] MEDS: VENLAFAXINE 75 MG TABLET PO SCH (09:07)
[2016-11-29] MEDS: FENOFIBRATE 145 MG TABLET PO SCH (09:07)
[2016-11-29] MEDS: ASPIRIN EC 325 MG TABLET PO SCH (09:07)
[2016-11-29] MEDS: GABAPENTIN 300 MG CAPSULE PO SCH (09:07)
[2016-11-29] MEDS: traMADol 50 MG TABLET PO SCH (09:07)
[2016-11-29] MEDS: sitaGLIPtin 100 MG TABLET PO SCH (09:07)
[2016-11-29] MEDS: ALLOPURINOL 300 MG TABLET PO SCH (09:07)
[2016-11-29] MEDS: LISINOPRIL 2.5 MG TABLET PO SCH (09:07)
[2016-11-29] MEDS: TICAGRELOR 90 MG TABLET PO SCH (09:08)
[2016-11-29] MEDS: TAMSULOSIN 0.4 MG CAPSULE PO SCH (09:08)
[2016-11-29] MEDS: CARVEDILOL 12.5 MG TABLET PO SCH (09:08)
[2016-11-29] MEDS: BENZONATATE 100 MG CAPSULE PO SCH (09:08)
[2016-11-29] MEDS: ATORVASTATIN 10 MG TABLET PO SCH (09:08)
[2016-11-29] MEDS: ACETAMINOPHEN 325 MG TABLET PO SCH (09:08)
[2016-11-29] MEDS: DULoxetine 30 MG CAPSULE PO SCH (09:08)
[2016-11-29] MEDS: IBUPROFEN 800 MG TABLET PO SCH (09:08)
[2016-11-29] MEDS: FUROSEMIDE 40 MG TABLET PO SCH (09:09)
[2016-11-29 11:38] VITALS: BP 112/61
--- NOTE | 2016-11-29 12:29 | Discharge Summary ---
Hospital Course - Hospital Course Hospital Course: Mr. Casiano is a 60 year old male routinely followed by Dr. To. Risk factors include: CAD, HTN, and NIDDM. Patient underwent elective cardiac catheterization performed Dr. To with the following impression noted: No significant restenosis of the prior stent or angioplasty site of the LAD/ diagonal Old disease involving distal LAD, a branch of an obtuse marginal, the posterior branch, and the distal left main-if anything, these lesions appear to be slightly improved-possibly due to better compliance with his lipid therapy and/ or diabetes treatment Moderately severe global left systolic dysfunction, LVEF about 30% Moderate LV enlargement Moderate elevation of LVEDP, 18-20 mmHg Angio-Seal of the right femoral artery-successful He tolerated the procedure well without complication was returned to the telemetry unit in stable condition. It is thought that his pain noncardiac in nature. Patient is interested in returning to his pain treatment center and states that he has not returned because he has been 30 to dollars. He states he will call them as if he can arrange payment. Sleep medicine was consulted and, initially patient declines sleep study, at discharge he was agreeable and this was arranged outpatient. He felt he met maximal medical therapy, patient's been discharged home in stable condition. He will follow-up with Dr. To in approximately 6 months. He will resume all of his preadmission medications. Following changes will take place on his home medications: (new) Pantoprazole 40 mg orally daily. Decrease AA 81mg orally daily (rather than 325mg orally daily). Patient was counseled regarding the merits of tobacco cessation for greater than 5 minutes. - Time spent with patient Time with patient DS: Less than 30 minutes Diagnosis - Discharge Diagnosis (1) Chest pain Status: Chronic (2) Unspecified sleep apnea Status: Chronic (3) CAD (coronary artery disease) Status: Chronic (4) Chronic pain syndrome Status: Chronic (5) Generalized anxiety disorder Status: Chronic (6) History of cervical spinal surgery Status: Acute (7) Hypercholesterolemia Status: Chronic (8) Smoker Status: Chronic (9) Diabetes Status: Chronic (10) Hypertension Status: Chronic Specialty Discharge - Follow Up or Referrals Follow up with: Alin To MD [Physician] - (FOLLOW UP APPT 6 MONTHS-WILL CALL WITH DATE AND TIME OF APPT. ) Discharge Plan - Discharge Data Disposition: Disch To Home/Self Care Condition at Discharge: Stable Discharge Diet: diabetic diet Activity: other (post-cath expectations) Hygiene: other (post-cath expectations) Weight Bearing at Discharge: other Driving: other (post-cath expectations) Contact your physician if you experience:: fever over 101, Difficulty voiding, Redness or swelling, Nausea/Vomiting, Shortness of breath, Bleeding, pain uncontrolled by pain medications - Discharge Medications New Aspirin [Ecotrin] 81 mg PO DAILY #30 tablet. Glucagon 1 mg IM PRN PRN #0 vial PRN Reason: Hypoglycemia w/o IV access Pantoprazole Tab [Protonix Tab] 40 mg PO DAILY #30 tablet Continue Vilazodone Hydrochloride [Viibryd] 20 mg PO DAILY Nitroglycerin [Nitroglycerin SL Tab] 0.4 mg SL Q5M PRN PRN Reason: Chest Pain Benzonatate 100 mg PO TID Lisinopril 2.5 mg PO DAILY Furosemide 40 mg PO BID sitaGLIPtin [Januvia] 100 mg PO DAILY Fenofibrate [Tricor] 145 mg PO DAILY Ibuprofen 800 mg PO TID Glipizide [Glipizide Xl] 10 mg PO BID Duloxetine HCl [Cymbalta] 60 mg PO DAILY Carvedilol [Coreg] 12.5 mg PO BID Allopurinol [Zyloprim] 300 mg PO DAILY Tamsulosin [Flomax] 0.4 mg PO DAILY Esomeprazole Magnesium [Esomeprazole] 40 mg PO DAILY Atorvastatin [Lipitor] 10 mg PO DAILY Acetaminophen Tab [Tylenol Tab] 325 mg PO BID tablet Gabapentin Cap/Tab [Neurontin Cap/Tab] 100 mg PO TID #90 capsule Ticagrelor [Brilinta] 90 mg PO BID #60 tablet Venlafaxine [Effexor] 75 mg PO BID #60 tablet traMADol TAB [Ultram] 50 mg PO BID #30 tablet Magnesium Chloride [Mag Delay] 64 mg PO BID Discontinued Aspirin [Ecotrin] 325 mg PO DAILY - Follow Up or Referral Follow Up: Alin To MD [Physician] - (FOLLOW UP APPT 6 MONTHS-WILL CALL WITH DATE AND TIME OF APPT. ) - Forms/Instructions Exam - Constitutional Vitals: Period Temp Pulse Resp BP Sys/White Pulse Ox Last 24 Hr 96.7 F-97.3 F 43-89 16-20 97-112/47-61 96-100 Exam: General: Appears well with no apparent distress. Pleasant and cooperative. Appears comfortable. HEENT: PERRL, normocephalic, atraumatic. Mucous membranes moist. No jaundice noted. Conjunctiva moist and clear, sclerae anicteric Neck: No JVD/HJR, no thyromegaly or lymphadenopathy noted. No carotid bruit appreciated Cardiac: Regular rate and rhythm. No murmur rub or gallop. Lungs: Clear to auscultation without accessory muscle use to assist the respiratory pattern. Not requiring oxygen Abdomen: Soft, bowel sounds normoactive. Nontender and nondistended. No abdominal bruit or thrill noted. No masses noted. Musculoskeletal: No fluid collection. Decreased range of motion is noted. Extremities: Right groin free of hematoma or bruit. No clubbing, cyanosis noted. No edema noted. Upper extremity pulses 2+. Lower extremity pulses 2+. Capillary refill less than 3 seconds. Skin: No unusual lesions or rashes. No skin breakdown appreciated. Neuro: Awake, alert and oriented 3. Moves all extremities well without hemiparesis or paralysis. No essential tremor is appreciated. Discharge Results Labs on day of discharge: Labs from last 24 hours 11/29/16 11/29/16 11/29/16 11:00 07:50 04:54 WBC RBC Hgb Hct MCV MCH MCHC RDW Plt Count MPV Neut % (Auto) Lymph % (Auto) [place] % (Auto) Eos % (Auto) Baso % (Auto) Neut # (Auto) Lymph # (Auto) [place] # (Auto) Eos # (Auto) Baso # (Auto) Immature Gran % Nucleated RBC % Immature Gran # Nucleated RBCs # Sodium 144 Potassium 4.1 Chloride 111 H Carbon Dioxide 24 Anion Gap 13.1 BUN 20 H Creatinine 1.00 GFR Calculation 98 BUN/Creatinine Ratio 20.00 Glucose 155 H POC Glucose 215 H 155 H Calculated Osmolality 291.8 Calcium 8.7 11/29/16 11/28/16 11/28/16 04:54 19:57 15:37 WBC 6.9 D RBC 4.71 Hgb 14.4 D Hct 42.4 MCV 90.0 MCH 31 MCHC 34.0 RDW 12.6 Plt Count 143 D MPV 12.4 H Neut % (Auto) 51.0 Lymph % (Auto) 33.6 [place] % (Auto) 6.0 Eos % (Auto) 8.3 Baso % (Auto) 0.7 Neut # (Auto) 3.5 Lymph # (Auto) 2.3 [place] # (Auto) 0.4 Eos # (Auto) 0.6 Baso # (Auto) 0.1 Immature Gran % 0.4 Nucleated RBC % 0.0 Immature Gran # 0.03 Nucleated RBCs # 0.00 Sodium Potassium Chloride Carbon Dioxide Anion Gap BUN Creatinine GFR Calculation BUN/Creatinine Ratio Glucose POC Glucose 180 H 146 H Calculated Osmolality Calcium - Imaging and Cardiology Cardiology Procedure: report reviewed by me Procedure: Chest x-ray: report reviewed by me DS: Provider Date of admission: 11/27/16 03:20 Primary care physician: . No PCP Attending physician on admission: Alin To MD Consults: 11/27/16 11:33 Consult to Pharmacy [CONS] Routine Reason for Pharmacy Consult: Adjust Meds Renal Funct 11/27/16 19:38 Consult to Physician [CONS] Routine Comment: Consulting Provider: Bhavin Espinoza Consulting Provider Notified: No When should Consulting Provider be notified: In am Consult Notification Comment: Man with multiple areas of pain. Maybe he has fibromyalgia. He also has coronary disease and diabetes and anxiety. Please evaluate and treat for various areas of pain. Thank you. If it is Dr. Barrett is been seeing him, this consult could go to Dr. Barrett. I do not know which of you have seen him in the past, but either is okay. 11/28/16 18:14 Consult to Sleep Center [CONS] Routine Reason for Sleep Center: Sleep Center Physician Discharging clinician: Gloria Canseco NP Expected date of discharge: 11/29/16
--- NOTE | 2016-11-29 12:55 | Sleep Medicine Progress Note ---
Assessment and Plan (1) Unspecified sleep apnea Status: Chronic Assessment and plan: After this discussion, the patient is agreeable for polysomnography. He asked that we set him up and we will get this done as soon as possible. Thank you for this consult. Current Visit: Yes (2) CAD (coronary artery disease) Status: Chronic Current Visit: Yes (3) Diabetes Status: Chronic Current Visit: No (4) Hypertension Status: Chronic Current Visit: No Sleep Medicine Subjective Interval history: I came by to discuss the need for sleep study with Mr. Casiano. 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 I explained to him that this will actually make him a safer truck shop mechanic. Will also protect him against further issues with heart disease and stroke. Treat underlying sleep apnea can help with management of hypertension and type 2 diabetes is well. Liability for his [employer] company will come from him not being treated for sleep apnea if present. Post DOT physicals include screening for sleep apnea with evaluation and holding of driving until that examination is complete. 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 His grandson happened to be sitting there in the room with us and stated that he knew that his grandfather had obstructive sleep apnea and needed to be treated. He knew his from observing him sleeping. Exam (Progress Note) - Constitutional Vitals: Period Temp Pulse Resp BP Sys/White Pulse Ox Last 24 Hr 96.7 F-97.3 F 43-89 16-20 97-112/47-61 96-100 Results - Labs CBC & BMP: 11/29/16 04:54 11/29/16 04:54 Lab Results: I have reviewed the past 24 hour labs Specialty Discharge - Follow Up or Referrals Follow up with: Alin To MD [Physician] - (FOLLOW UP APPT 6 MONTHS-WILL CALL WITH DATE AND TIME OF APPT. )
== END 2016-11-29 13:52 | disposition home or self-care (01) | DRG 287 ==
LOC: N.ED 01:14 → N.EDINP 03:20 → N.TELEN 11:20
PROVIDERS: ADMIT Internal Medicine Cardiovascular Disease; ATTEND Internal Medicine Cardiovascular Disease
PROC: CLCCHCL (ICD-10-PCS; 2016-11-28 08:15)

== ENCOUNTER 2018-08-28 10:22 | Inpatient (IN) ==
[2018-08-28 11:20] LABS: Basophils # 0.1 10*3/uL (0.0-0.2); Basophils % 0.5 % (0.0-0.8); Eosinophils % 15.5 % (0.00-10.9); Hematocrit 45.4 VOL% (42.0-52.0); Hemoglobin 15.9 GM/DL (14.0-18.0); Immature Granulocytes % 0.8 %; Lymphocytes # 0.7 10*3/uL (1.4-4.0); Lymphocytes % 5.3 % (21.2-54.2); Mean Corpuscular Hemoglobin 31 PG (27-34); Mean Platelet Volume 12.3 FL (9.6-12.0); Monocytes # 0.5 10*3/uL (0.11-0.8); Monocytes % 3.6 % (1.7-12.7); Neutrophils # 9.5 10*3/uL (1.4-7.4); Neutrophils % 74.3 % (38.7-73.9); Platelet Count 172 T/CUMM (130-400); Red Cell Distribution Width 12.3 % (9.3-17.3); White Blood Count 12.8 T/CUMM (4-12)
[2018-08-28 11:27] LABS: PT Patient Result 10.2 SECS; Partial Thromboplastin Time 24.9 SECS (0-40)
[2018-08-28 11:34] LABS: Alanine Aminotransferase 20 U/L (16-61); Albumin 3.4 G/DL (3.4-5.0); Alkaline Phosphatase 90 U/L (45-117); Aspartate Amino Transferase 16 U/L (0-37); Blood Urea Nitrogen 31 MG/DL (7-18); Glucose 413 MG/DL (74-106); Osmolality,Calculated 293.1 MOS/KG (273-304); Potassium 4.2 MMOL/L (3.5-5.1); Sodium 135 MMOL/L (136-145); Total Protein 6.1 G/DL (6.4-8.3); Troponin I < 0.015 NG/ML (0.00-0.045)
[2018-08-28 11:41] LABS: Anisocytosis Slight; Band Neutrophils 10 % (0-10); Eosinophils 19 % (0-10); Lymphocytes 10 % (20-55); Platelet Estimate Normal; Segmented Neutrophils 59 % (50-85); Total Cells Counted 100
[2018-08-28] MEDS ORDERED: GLUCAGON 1 MG VIAL IM PRN (12:31)
[2018-08-28] MEDS ORDERED: ONDANSETRON 4 MG/2 ML VIAL IV PRN (12:31)
[2018-08-28] MEDS ORDERED: MORPHINE 4 MG/1 ML VIAL IV PRN (12:31)
[2018-08-28] MEDS ORDERED: NICOTINE 21 MG/24 HR PATCH TRANSDERM PRN (12:31)
[2018-08-28] MEDS ORDERED: ACETAMINOPHEN 325 MG TABLET PO PRN (12:31)
[2018-08-28] MEDS ORDERED: diphenhydrAMINE CAP 25 MG CAPSULE PO PRN (12:31)
[2018-08-28] MEDS ORDERED: guaiFENesin/DM ER 600-30 MG TABLET PO PRN (12:31)
[2018-08-28] MEDS ORDERED: DOCUSATE SODIUM 100 MG CAPSULE PO PRN (12:31)
[2018-08-28] MEDS ORDERED: SODIUM CHLORIDE 0.9% 500 ML IV ONE (12:31)
[2018-08-28] MEDS ORDERED: DEXTROSE 50% 25 GM/50 ML VIAL IV PRN (12:31)
[2018-08-28] MEDS ORDERED: GABAPENTIN 100 MG CAPSULE PO PRN (12:38)
[2018-08-28] MEDS ORDERED: NITROGLYCERIN SL 0.4 MG TABLET SL PRN (12:38)
[2018-08-28] MEDS ORDERED: MAGNESIUM SULF RIDER 4 GM in PREMIX 1 EACH IV PRN (13:41)
[2018-08-28] MEDS ORDERED: MAGNESIUM SULF RIDER 2 GM in PREMIX 1 EACH IV PRN (13:41)
[2018-08-28] MEDS ORDERED: INFLUENZA VIRUS VACCINE 0.5 ML SYRINGE IM ONE (14:00)
[2018-08-28] MEDS: SODIUM CHLORIDE 0.9% 1,000 ML IV SCH ×2 (14:27→21:47)
[2018-08-28 14:36] LABS: Apearance,Urine CLEAR (Clear); Bilirubin,Urine Negative (Negative); Blood, Urine Negative (Negative); Glucose,Urine (UA) >=500 mg/dL (Negative); Hyaline Casts,Urine 1 /LPF (0-3); Ketones,Urine 5 mg/dL (Negative); Mucus,Urine Occasional /LPF (Occasional); Nitrite,Urine Negative (Negative); Protein,Urine 30 MG/DL; Urine Color Yellow (Yellow); Urine Specific Gravity 1.027 (1.001-1.035); Urine Urobilinogen < 2.0 EU/DL (0.2-1.0); WBC,Urine 1 /HPF (0-6)
[2018-08-28] MEDS: DULoxetine 30 MG CAPSULE PO SCH (17:13)
[2018-08-28] MEDS: PANTOPRAZOLE 40 MG TABLET PO SCH (17:13)
[2018-08-28] MEDS: ASPIRIN EC 81 MG TABLET PO SCH (17:14)
[2018-08-28] MEDS: ASCORBIC ACID 500 MG TABLET PO SCH ×2 (17:14→21:49)
[2018-08-28] MEDS: MAGNESIUM OXIDE 400 MG TABLET PO SCH ×2 (17:14→21:48)
[2018-08-28] MEDS: CARVEDILOL 12.5 MG TABLET PO SCH (17:14)
[2018-08-28] MEDS: POTASSIUM CHLORIDE 20 MEQ TABLET PO SCH ×2 (17:14→21:48)
[2018-08-28] MEDS: VENLAFAXINE 75 MG TABLET PO SCH (17:15)
[2018-08-28] MEDS: FENOFIBRATE 145 MG TABLET PO SCH (17:15)
[2018-08-28] MEDS: ALLOPURINOL 300 MG TABLET PO SCH (17:15)
[2018-08-28] MEDS: INSULIN LISPRO 100 UNIT/ML SUBCUT SCH (17:15)
[2018-08-28] MEDS: ATORVASTATIN 20 MG TABLET PO SCH (21:48)
[2018-08-29 03:36] LABS: Basophils # 0.1 10*3/uL (0.0-0.2); Basophils % 0.8 % (0.0-0.8); Eosinophils # 1.7 10*3/uL (0.0-0.87); Eosinophils % 20.9 % (0.00-10.9); Hematocrit 44.1 VOL% (42.0-52.0); Hemoglobin 15.2 GM/DL (14.0-18.0); Immature Granulocytes % 0.5 %; Immature Granulocytes Absolute 0.04 #; Lymphocytes # 1.9 10*3/uL (1.4-4.0); Lymphocytes % 23.8 % (21.2-54.2); Mean Corpuscular HGB Conc 34.5 GM/DL (32-36); Mean Corpuscular Hemoglobin 31 PG (27-34); Mean Corpuscular Volume 89.5 FL (87-102); Mean Platelet Volume 12.6 FL (9.6-12.0); Monocytes # 0.5 10*3/uL (0.11-0.8); Monocytes % 6.3 % (1.7-12.7); Neutrophils # 3.8 10*3/uL (1.4-7.4); Neutrophils % 47.7 % (38.7-73.9); Platelet Count 157 T/CUMM (130-400); Red Blood Count 4.93 MC/CUMM (3.8-5.5); Red Cell Distribution Width 12.4 % (9.3-17.3); White Blood Count 7.9 T/CUMM (4-12)
[2018-08-29 04:07] LABS: Albumin 3.2 G/DL (3.4-5.0); Bilirubin,Total 0.5 MG/DL (0.2-1.0); Calcium 8.1 MG/DL (8.5-10.1); Osmolality,Calculated 292.4 MOS/KG (273-304); Potassium 4.2 MMOL/L (3.5-5.1); Thyroid Stimulating Hormone 2.86 uIU/ml (0.358-3.74); Total Protein 5.4 G/DL (6.4-8.3); VLDL CHOLESTEROL 64.2 MG/DL
[2018-08-29 04:09] LABS: Band Neutrophils 1 % (0-10); Eosinophils 24 % (0-10); Lymphocytes 24 % (20-55); Segmented Neutrophils 38 % (50-85); Total Cells Counted 100
[2018-08-29 04:11] LABS: Platelet Estimate Normal
[2018-08-29 04:12] LABS: Ovalocytes 1+
[2018-08-29] MEDS: SODIUM CHLORIDE 0.9% 1,000 ML IV SCH ×2 (06:52→15:22)
[2018-08-29] MEDS: ASPIRIN EC 81 MG TABLET PO SCH (08:31)
[2018-08-29] MEDS: PANTOPRAZOLE 40 MG TABLET PO SCH (08:31)
[2018-08-29] MEDS: ASCORBIC ACID 500 MG TABLET PO SCH ×2 (08:32→21:15)
[2018-08-29] MEDS: FENOFIBRATE 145 MG TABLET PO SCH (08:32)
[2018-08-29] MEDS: DULoxetine 30 MG CAPSULE PO SCH (08:32)
[2018-08-29] MEDS: TAMSULOSIN 0.4 MG CAPSULE PO SCH (08:32)
[2018-08-29] MEDS: MAGNESIUM OXIDE 400 MG TABLET PO SCH ×2 (08:32→21:15)
[2018-08-29] MEDS: POTASSIUM CHLORIDE 20 MEQ TABLET PO SCH ×2 (08:32→21:15)
[2018-08-29] MEDS: VENLAFAXINE 75 MG TABLET PO SCH ×2 (08:32→17:46)
[2018-08-29] MEDS: ALLOPURINOL 300 MG TABLET PO SCH (08:32)
[2018-08-29] MEDS: CARVEDILOL 12.5 MG TABLET PO SCH ×2 (08:33→17:46)
[2018-08-29] MEDS: INSULIN LISPRO 100 UNIT/ML SUBCUT SCH ×3 (08:46→17:48)
[2018-08-29] MEDS ORDERED: INSULIN GLARGINE 100 UNIT/ML SUBCUT SCH (21:00)
[2018-08-29] MEDS: ATORVASTATIN 20 MG TABLET PO SCH (21:15)
[2018-08-30 03:48] LABS: Basophils # 0.1 10*3/uL (0.0-0.2); Basophils % 0.6 % (0.0-0.8); Eosinophils # 1.6 10*3/uL (0.0-0.87); Eosinophils % 18.3 % (0.00-10.9); Hematocrit 41.4 VOL% (42.0-52.0); Immature Granulocytes % 0.7 %; Immature Granulocytes Absolute 0.06 #; Lymphocytes # 2.6 10*3/uL (1.4-4.0); Lymphocytes % 29.5 % (21.2-54.2); Mean Corpuscular HGB Conc 33.8 GM/DL (32-36); Mean Corpuscular Hemoglobin 30 PG (27-34); Mean Corpuscular Volume 89.8 FL (87-102); Mean Platelet Volume 12.4 FL (9.6-12.0); Monocytes # 0.7 10*3/uL (0.11-0.8); Monocytes % 7.5 % (1.7-12.7); Neutrophils # 3.8 10*3/uL (1.4-7.4); Neutrophils % 43.4 % (38.7-73.9); Platelet Count 151 T/CUMM (130-400); Red Blood Count 4.61 MC/CUMM (3.8-5.5); Red Cell Distribution Width 12.4 % (9.3-17.3); White Blood Count 8.7 T/CUMM (4-12)
[2018-08-30 04:14] LABS: Osmolality,Calculated 287.4 MOS/KG (273-304); Potassium 4.3 MMOL/L (3.5-5.1); Risk Ratio 5.04; VLDL CHOLESTEROL 44.8 MG/DL
[2018-08-30 04:31] LABS: Eosinophils 16 % (0-10); Lymphocytes 35 % (20-55); Platelet Estimate Adequate; Segmented Neutrophils 42 % (50-85); Total Cells Counted 100
[2018-08-30] MEDS: SODIUM CHLORIDE 0.9% 1,000 ML IV SCH (06:26)
[2018-08-30] MEDS: VENLAFAXINE 75 MG TABLET PO SCH ×2 (09:49→17:29)
[2018-08-30] MEDS: FENOFIBRATE 145 MG TABLET PO SCH (09:50)
[2018-08-30] MEDS: ASCORBIC ACID 500 MG TABLET PO SCH ×2 (09:50→21:14)
[2018-08-30] MEDS: POTASSIUM CHLORIDE 20 MEQ TABLET PO SCH ×2 (09:50→21:15)
[2018-08-30] MEDS: ALLOPURINOL 300 MG TABLET PO SCH (09:51)
[2018-08-30] MEDS: MAGNESIUM OXIDE 400 MG TABLET PO SCH ×2 (09:51→21:15)
[2018-08-30] MEDS: DULoxetine 30 MG CAPSULE PO SCH (09:52)
[2018-08-30] MEDS: TAMSULOSIN 0.4 MG CAPSULE PO SCH (09:52)
[2018-08-30] MEDS: CARVEDILOL 12.5 MG TABLET PO SCH ×2 (09:53→17:29)
[2018-08-30] MEDS: ASPIRIN EC 81 MG TABLET PO SCH (09:53)
[2018-08-30] MEDS: PANTOPRAZOLE 40 MG TABLET PO SCH (09:53)
[2018-08-30] MEDS: INSULIN LISPRO 100 UNIT/ML SUBCUT SCH ×3 (09:54→17:28)
[2018-08-30] MEDS ORDERED: MAGNESIUM SULF RIDER 4 GM in PREMIX 1 EACH IV ONE (12:11)
[2018-08-30] MEDS: INSULIN GLARGINE 100 UNIT/ML SUBCUT SCH (21:15)
[2018-08-30] MEDS: ATORVASTATIN 40 MG TABLET PO SCH (21:15)
[2018-08-31 03:43] LABS: Basophils # 0.1 10*3/uL (0.0-0.2); Basophils % 0.7 % (0.0-0.8); Eosinophils # 1.8 10*3/uL (0.0-0.87); Eosinophils % 19.1 % (0.00-10.9); Hematocrit 42.8 VOL% (42.0-52.0); Hemoglobin 14.8 GM/DL (14.0-18.0); Immature Granulocytes % 0.5 %; Immature Granulocytes Absolute 0.05 #; Lymphocytes # 2.6 10*3/uL (1.4-4.0); Mean Corpuscular HGB Conc 34.6 GM/DL (32-36); Mean Corpuscular Hemoglobin 31 PG (27-34); Mean Corpuscular Volume 89.4 FL (87-102); Mean Platelet Volume 12.2 FL (9.6-12.0); Monocytes # 0.5 10*3/uL (0.11-0.8); Monocytes % 5.4 % (1.7-12.7); Neutrophils # 4.3 10*3/uL (1.4-7.4); Neutrophils % 46.3 % (38.7-73.9); Platelet Count 163 T/CUMM (130-400); Red Blood Count 4.79 MC/CUMM (3.8-5.5); Red Cell Distribution Width 12.3 % (9.3-17.3); White Blood Count 9.2 T/CUMM (4-12)
[2018-08-31 04:02] LABS: Calcium 8.3 MG/DL (8.5-10.1); Osmolality,Calculated 286.4 MOS/KG (273-304); Potassium 4.1 MMOL/L (3.5-5.1)
[2018-08-31 04:18] LABS: Band Neutrophils 2 % (0-10); Eosinophils 19 % (0-10); Hypochromasia Slight; Lymphocytes 24 % (20-55); Platelet Estimate Normal; Segmented Neutrophils 50 % (50-85); Total Cells Counted 100
[2018-08-31] MEDS: SODIUM CHLORIDE 0.9% 1,000 ML IV SCH (08:57)
[2018-08-31] MEDS: CARVEDILOL 12.5 MG TABLET PO SCH ×2 (09:44→17:35)
[2018-08-31] MEDS ORDERED: DIAZEPAM 5 MG TABLET PO ONE (09:47)
[2018-08-31] MEDS ORDERED: diphenhydrAMINE CAP 50 MG CAPSULE PO ONE (09:48)
[2018-08-31] MEDS ORDERED: diphenhydrAMINE CAP 25 MG CAPSULE ONE (09:51)
[2018-08-31] MEDS ORDERED: DIAZEPAM 5 MG TABLET ONE (09:51)
[2018-08-31] MEDS ORDERED: LIDOCAINE 1% 20 ML VIAL ONE (09:55)
[2018-08-31] MEDS ORDERED: MIDAZOLAM 2 MG/2 ML VIAL ONE (09:57)
[2018-08-31] MEDS ORDERED: fentaNYL 100 MCG/2 ML VIAL ONE (09:57)
[2018-08-31] MEDS ORDERED: HEPARIN 5,000 UNIT/1 ML VIAL ONE (10:22)
[2018-08-31] MEDS ORDERED: SODIUM CHLORIDE 0.9% 1,000 ML IV SCH ×2 (10:30→13:30)
[2018-08-31] MEDS: INSULIN LISPRO 100 UNIT/ML SUBCUT SCH ×3 (11:47→17:36)
[2018-08-31] MEDS: MAGNESIUM OXIDE 400 MG TABLET PO SCH ×2 (11:51→21:31)
[2018-08-31] MEDS: TAMSULOSIN 0.4 MG CAPSULE PO SCH (11:52)
[2018-08-31] MEDS: DULoxetine 30 MG CAPSULE PO SCH (11:52)
[2018-08-31] MEDS: POTASSIUM CHLORIDE 20 MEQ TABLET PO SCH ×2 (11:52→21:29)
[2018-08-31] MEDS: FENOFIBRATE 145 MG TABLET PO SCH (11:53)
[2018-08-31] MEDS: PANTOPRAZOLE 40 MG TABLET PO SCH (11:53)
[2018-08-31] MEDS: ASCORBIC ACID 500 MG TABLET PO SCH ×2 (11:53→21:33)
[2018-08-31] MEDS: ALLOPURINOL 300 MG TABLET PO SCH (11:53)
[2018-08-31] MEDS: ACETAMINOPHEN 325 MG TABLET PO SCH ×2 (11:58→21:32)
[2018-08-31] MEDS: GABAPENTIN 100 MG CAPSULE PO SCH ×3 (11:58→21:31)
[2018-08-31] MEDS: VENLAFAXINE 75 MG TABLET PO SCH ×2 (11:58→17:35)
[2018-08-31] MEDS: ASPIRIN CHEW 81 MG TABLET PO SCH (11:58)
[2018-08-31] MEDS: CHLORHEXIDINE 4% SOLN 118 ML BOTTLE TOP SCH ×2 (17:36→22:04)
[2018-08-31] MEDS: INSULIN GLARGINE 100 UNIT/ML SUBCUT SCH (21:30)
[2018-08-31] MEDS: ATORVASTATIN 40 MG TABLET PO SCH (21:31)
[2018-08-31] MEDS: CHLORHEXIDINE 0.12% ORAL RINSE 60 ML BOTTLE SWISH/SPIT SCH (21:32)
[2018-08-31] MEDS: ASPIRIN EC 81 MG TABLET PO SCH (23:23)
[2018-09-01 02:34] LABS: Basophils % 0.4 % (0.0-0.8); Eosinophils # 1.8 10*3/uL (0.0-0.87); Eosinophils % 18.8 % (0.00-10.9); Hematocrit 41.6 VOL% (42.0-52.0); Hemoglobin 14.3 GM/DL (14.0-18.0); Immature Granulocytes % 0.5 %; Immature Granulocytes Absolute 0.05 #; Lymphocytes # 2.6 10*3/uL (1.4-4.0); Lymphocytes % 26.9 % (21.2-54.2); Mean Corpuscular HGB Conc 34.4 GM/DL (32-36); Mean Corpuscular Hemoglobin 31 PG (27-34); Mean Corpuscular Volume 89.1 FL (87-102); Monocytes # 0.5 10*3/uL (0.11-0.8); Monocytes % 5.1 % (1.7-12.7); Neutrophils # 4.7 10*3/uL (1.4-7.4); Neutrophils % 48.3 % (38.7-73.9); Platelet Count 156 T/CUMM (130-400); Red Blood Count 4.67 MC/CUMM (3.8-5.5); Red Cell Distribution Width 12.2 % (9.3-17.3); White Blood Count 9.7 T/CUMM (4-12)
[2018-09-01 02:53] LABS: Albumin 3.2 G/DL (3.4-5.0); Bilirubin,Total 0.7 MG/DL (0.2-1.0); Calcium 8.7 MG/DL (8.5-10.1); Osmolality,Calculated 288.5 MOS/KG (273-304); Potassium 4.2 MMOL/L (3.5-5.1); Total Protein 5.7 G/DL (6.4-8.3)
[2018-09-01 03:02] LABS: Eosinophils 16 % (0-10); Lymphocytes 34 % (20-55); Segmented Neutrophils 46 % (50-85); Total Cells Counted 100
[2018-09-01 03:04] LABS: Giant Platelets Few; Platelet Estimate Normal; Polychromasia Few
[2018-09-01] MEDS ORDERED: CEFUROXIME INJ 1,500 MG in SYRINGE 1 EACH IV ONE (05:00)
[2018-09-01] MEDS ORDERED: TISSUE ADHESIVE 1 EACH APPLICATOR TOP ONE (05:19)
[2018-09-01] MEDS ORDERED: PAPAVERINE 60 MG/2 ML VIAL ONE (05:19)
[2018-09-01] MEDS ORDERED: VANCOMYCIN 1,000 MG VIAL ONE (05:20)
[2018-09-01] MEDS ORDERED: DIAZEPAM 5 MG TABLET PO ONE (05:30)
[2018-09-01] MEDS: CARVEDILOL 12.5 MG TABLET PO SCH ×2 (05:38→08:46)
[2018-09-01 07:45] LABS: ABG Base Excess 0.5 MMOL/L (-2.5-2.5); ABG HCO3 24.9 MMOL/L (20-26); ABG Oxygen Saturation 99.8 % (95-100); ABG PCO2 38.3 MM HG (35-48); ABG TCO2 21.5 MMOL/L (23-27); Glucose Heart Surgery 188 MG/DL (74-106); Hematocrit Heart Surgery 41.6 PERCENT (42-52); Hemoglobin Heart Surgery 13.6 G/DL (14.0-18.0); Ionized Calcium Arterial 1.14 MMOL/L (1.21-1.46); PCO2 Patient Temp Arterial 38.3 MMHG; Patient Temperature 37 CELCIUS; Potassium Heart/CVR 4.1 MMOL/L (3.5-5.1); Sodium Heart/CVR 138 MMOL/L (135-145)
[2018-09-01] MEDS ORDERED: NITROPRUSSIDE 50 MG/2 ML VIAL ONE ×2 (08:07→08:08)
[2018-09-01] MEDS ORDERED: ALBUMIN 5% 12.5 GM/250 ML VIAL IV ONE (08:09)
[2018-09-01] MEDS ORDERED: EPINEPHrine 1 MG/10 ML SYRINGE ONE (08:09)
[2018-09-01] MEDS ORDERED: SODIUM BICARBONATE 50 MEQ/50 ML SYRINGE IV ONE ×2 (08:09→10:19)
[2018-09-01] MEDS ORDERED: PHENYLEPHRINE DRIP 40 MG/250 ML PREMIX IV ONE (08:09)
[2018-09-01] MEDS ORDERED: CALCIUM CHLORIDE 1,000 MG/10 ML SYRINGE IV ONE (08:09)
[2018-09-01] MEDS ORDERED: POTASSIUM CHLORIDE RIDER 100 ML IV ONE (08:10)
[2018-09-01 08:37] LABS: Apearance,Urine CLEAR (Clear); Bilirubin,Urine Negative (Negative); Blood, Urine Negative (Negative); Glucose,Urine (UA) 150 mg/dL (Negative); Ketones,Urine Negative (Negative); Nitrite,Urine Negative (Negative); Protein,Urine 30 MG/DL; RBC,Urine 1 /HPF (0-4); Squamous Epithelial Cell,Urine Occasional /HPF (0-10); Urine Color Yellow (Yellow); Urine Specific Gravity 1.015 (1.001-1.035); Urine Urobilinogen < 2.0 EU/DL (0.2-1.0)
[2018-09-01] MEDS: VENLAFAXINE 75 MG TABLET PO SCH (08:47)
[2018-09-01] MEDS: INSULIN LISPRO 100 UNIT/ML SUBCUT SCH (08:47)
[2018-09-01] MEDS: TAMSULOSIN 0.4 MG CAPSULE PO SCH (08:47)
[2018-09-01] MEDS: DULoxetine 30 MG CAPSULE PO SCH (08:47)
[2018-09-01] MEDS: ASPIRIN CHEW 81 MG TABLET PO SCH (08:47)
[2018-09-01] MEDS: CHLORHEXIDINE 4% SOLN 118 ML BOTTLE TOP SCH (08:48)
[2018-09-01] MEDS: MAGNESIUM OXIDE 400 MG TABLET PO SCH (08:48)
[2018-09-01] MEDS: POTASSIUM CHLORIDE 20 MEQ TABLET PO SCH (08:48)
[2018-09-01] MEDS: PANTOPRAZOLE 40 MG TABLET PO SCH (08:49)
[2018-09-01] MEDS: GABAPENTIN 100 MG CAPSULE PO SCH (08:49)
[2018-09-01] MEDS: FENOFIBRATE 145 MG TABLET PO SCH (08:49)
[2018-09-01] MEDS: ACETAMINOPHEN 325 MG TABLET PO SCH (08:49)
[2018-09-01] MEDS: CHLORHEXIDINE 0.12% ORAL RINSE 60 ML BOTTLE SWISH/SPIT SCH ×2 (08:49→20:13)
[2018-09-01] MEDS: ALLOPURINOL 300 MG TABLET PO SCH (08:50)
[2018-09-01] MEDS: ASCORBIC ACID 500 MG TABLET PO SCH (08:50)
[2018-09-01 09:23] LABS: Hematocrit Heart Surgery 32.4 PERCENT (42-52); Hemoglobin Heart Surgery 10.5 G/DL (14.0-18.0); PCO2 Patient Temp Venous 39.6 MM HG; PH Patient Temp Venous 7.428; PO2 Patient Temp Venous 40.5 MM HG; Potassium Heart/CVR 5.4 MMOL/L (3.5-5.1); VBG Base Excess 1.9 MEQ/L (0-4); VBG HCO3 25.8 MEQ/L (24-28); VBG Oxygen Saturation 84.3 %; VBG PCO2 43.7 MMHG (41-51); VBG PH 7.399; VBG PO2 46.5 MMHG (17-40)
[2018-09-01 09:51] LABS: Hematocrit Heart Surgery 33.5 PERCENT (42-52); Hemoglobin Heart Surgery 10.8 G/DL (14.0-18.0); PCO2 Patient Temp Venous 35.6 MM HG; PH Patient Temp Venous 7.467; PO2 Patient Temp Venous 36.6 MM HG; VBG Base Excess 2.2 MEQ/L (0-4); VBG Oxygen Saturation 78.9 %; VBG PCO2 37.4 MMHG (41-51); VBG PH 7.452; VBG PO2 39.2 MMHG (17-40)
[2018-09-01 09:52] LABS: Potassium Heart/CVR 6.2 MMOL/L (3.5-5.1)
[2018-09-01] MEDS ORDERED: THROMBIN TOPICAL (RECOMBINANT) 5,000 UNIT VIAL TOP ONE (10:16)
[2018-09-01] MEDS ORDERED: PROTAMINE SULFATE 250 MG/25 ML VIAL IV ONE (10:19)
[2018-09-01] MEDS ORDERED: MAGNESIUM SULFATE 10 GM/20 ML VIAL IV ONE (10:19)
[2018-09-01] MEDS ORDERED: DEXTROSE 5% KCL 20 MEQ 20 MEQ/1,000 ML BAG IV ONE (10:19)
[2018-09-01] MEDS ORDERED: ALBUMIN 25% 25 GM/100 ML VIAL IV ONE (10:19)
[2018-09-01] MEDS ORDERED: methylPREDNISolone SOD SUC 1,000 MG/8 ML VIAL ONE (10:20)
[2018-09-01] MEDS ORDERED: PROTAMINE SULFATE 50 MG/5 ML VIAL IV ONE (10:20)
[2018-09-01] MEDS ORDERED: MANNITOL 12.5 GM/50 ML VIAL IV ONE (10:20)
[2018-09-01] MEDS ORDERED: FUROSEMIDE 20 MG/2 ML VIAL ONE (10:20)
[2018-09-01] MEDS ORDERED: HEPARIN 10,000 UNIT/10 ML VIAL ONE (10:20)
[2018-09-01 10:25] LABS: ABG Base Excess -1.5 MMOL/L (-2.5-2.5); ABG HCO3 23.2 MMOL/L (20-26); ABG Oxygen Saturation 99.6 % (95-100); ABG PCO2 44.4 MM HG (35-48); ABG PH 7.346 (7.35-7.45); ABG TCO2 21.9 MMOL/L (23-27); Glucose Heart Surgery 231 MG/DL (74-106); Hematocrit Heart Surgery 34.1 PERCENT (42-52); Hemoglobin Heart Surgery 11.1 G/DL (14.0-18.0); Ionized Calcium Arterial 1.27 MMOL/L (1.21-1.46); PCO2 Patient Temp Arterial 44.4 MMHG; PH Patient Temp Arterial 7.346; Patient Temperature 37 CELCIUS; Potassium Heart/CVR 3.9 MMOL/L (3.5-5.1); Sodium Heart/CVR 136 MMOL/L (135-145)
[2018-09-01] MEDS ORDERED: CALCIUM CHLORIDE 1,000 MG/10 ML VIAL IV ONE (11:26)
[2018-09-01] MEDS ORDERED: PHENYLEPHRINE DRIP 20 MG/250 ML PREMIX IV ONE (11:27)
[2018-09-01] MEDS ORDERED: SUFentanil 250 MCG/5 ML AMP ONE (11:27)
[2018-09-01] MEDS ORDERED: MIDAZOLAM 10 MG/2 ML VIAL ONE (11:27)
[2018-09-01] MEDS ORDERED: ePHEDrine 50 MG/ML AMP ONE (11:27)
[2018-09-01] MEDS ORDERED: SEVOFLURANE 1 UNIT/15 MINUTE INH ONE (11:27)
[2018-09-01] MEDS ORDERED: SODIUM CHLORIDE 0.9% 1,000 ML IV ONE (11:28)
[2018-09-01] MEDS ORDERED: MINERAL OIL/PETROLATUM OPH OINT 3.5 GM TUBE ONE (11:28)
[2018-09-01] MEDS ORDERED: AMINOCAPROIC ACID 5,000 MG/20 ML VIAL IV ONE (11:28)
[2018-09-01] MEDS ORDERED: ETOMIDATE 40 MG/20 ML VIAL IV ONE (11:28)
[2018-09-01] MEDS ORDERED: VECURONIUM 10 MG VIAL IV ONE (11:28)
[2018-09-01] MEDS ORDERED: SODIUM CHLORIDE 0.9% 250 ML IV ONE (11:28)
[2018-09-01] MEDS ORDERED: LACTATED RINGERS 1,000 ML IV ONE (11:28)
[2018-09-01] MEDS ORDERED: POTASSIUM CHLORIDE RIDER 10 MEQ in PREMIX 1 EACH IV PRN (11:42)
[2018-09-01] MEDS ORDERED: MIDAZOLAM 2 MG/2 ML VIAL IV PRN (11:42)
[2018-09-01] MEDS ORDERED: MAGNESIUM SULF RIDER 4 GM in PREMIX 1 EACH IV PRN (11:42)
[2018-09-01] MEDS ORDERED: CALCIUM CHLORIDE 1,000 MG/10 ML SYRINGE IV PRN (11:42)
[2018-09-01] MEDS ORDERED: CHLORHEXIDINE 4% SOLN 118 ML BOTTLE TOP PRN (11:42)
[2018-09-01] MEDS ORDERED: DEXTROSE 50% 25 GM/50 ML VIAL IV PRN ×2 (11:42)
[2018-09-01] MEDS ORDERED: INSULIN REGULAR 100 UNIT/ML IV PRN (11:42)
[2018-09-01] MEDS ORDERED: ACETAMINOPHEN 650 MG SUPP RECTAL PRN (11:42)
[2018-09-01] MEDS ORDERED: ONDANSETRON 4 MG/2 ML VIAL IV PRN (11:42)
[2018-09-01] MEDS ORDERED: INSULIN REGULAR DRIP 100 ML IV SCH (11:42)
[2018-09-01 12:01] LABS: ABG Base Excess -0.3 MMOL/L (-2.5-2.5); ABG HCO3 24.2 MMOL/L (20-26); ABG Oxygen Saturation 98.4 % (95-100); ABG PCO2 48.8 MM HG (35-48); ABG PH 7.338 (7.35-7.45); ABG TCO2 23.1 MMOL/L (23-27); Glucose Heart Surgery 136 MG/DL (74-106); Hematocrit Heart Surgery 39.9 PERCENT (42-52); Potassium Heart/CVR 3.7 MMOL/L (3.5-5.1)
[2018-09-01 12:04] LABS: Basophils # 0.1 10*3/uL (0.0-0.2); Basophils % 0.5 % (0.0-0.8); Eosinophils # 0.9 10*3/uL (0.0-0.87); Eosinophils % 5.8 % (0.00-10.9); Hematocrit 36.5 VOL% (42.0-52.0); Hemoglobin 12.4 GM/DL (14.0-18.0); Immature Granulocytes % 1.1 %; Immature Granulocytes Absolute 0.17 #; Lymphocytes # 1.3 10*3/uL (1.4-4.0); Lymphocytes % 8.1 % (21.2-54.2); Mean Corpuscular Hemoglobin 31 PG (27-34); Mean Corpuscular Volume 90.3 FL (87-102); Mean Platelet Volume 11.8 FL (9.6-12.0); Monocytes # 0.6 10*3/uL (0.11-0.8); Monocytes % 3.9 % (1.7-12.7); Neutrophils % 80.6 % (38.7-73.9); Platelet Count 180 T/CUMM (130-400); Red Blood Count 4.04 MC/CUMM (3.8-5.5); Red Cell Distribution Width 12.6 % (9.3-17.3); White Blood Count 16.1 T/CUMM (4-12)
[2018-09-01] MEDS: SODIUM CHLORIDE 0.45% 1,000 ML IV SCH ×2 (12:06→12:07)
[2018-09-01] MEDS: ALBUMIN 5% 12.5 GM in PREMIX 1 EACH IV PRN ×4 (12:06→16:37)
[2018-09-01] MEDS ORDERED: PHENYLEPHRINE DRIP 40 MG/250 ML PREMIX IV PRN (12:07)
[2018-09-01 12:11] LABS: INR 1.1; PT Patient Result 11.2 SECS; Partial Thromboplastin Time 26.2 SECS (0-40)
[2018-09-01] MEDS: POTASSIUM CHLORIDE RIDER 20 MEQ in PREMIX 1 EACH IV PRN ×2 (12:16→17:28)
[2018-09-01 12:18] LABS: Blood Urea Nitrogen 14 MG/DL (7-18); Calcium 8.2 MG/DL (8.5-10.1); Glucose 134 MG/DL (74-106); Osmolality,Calculated 288.8 MOS/KG (273-304); Potassium 3.7 MMOL/L (3.5-5.1); Sodium 144 MMOL/L (136-145)
[2018-09-01 12:28] LABS: Lactic Acid 2.4 MMOL/L (0.4-2.0)
[2018-09-01 13:08] LABS: ABG Base Excess -1.1 MMOL/L (-2.5-2.5); ABG HCO3 23.5 MMOL/L (20-26); ABG Oxygen Saturation 99.1 % (95-100); ABG PCO2 38.1 MM HG (35-48); ABG PH 7.396 (7.35-7.45); ABG TCO2 20.5 MMOL/L (23-27); Glucose Heart Surgery 154 MG/DL (74-106); Hematocrit Heart Surgery 38.9 PERCENT (42-52); Hemoglobin Heart Surgery 12.6 G/DL (14.0-18.0); Potassium Heart/CVR 4.1 MMOL/L (3.5-5.1)
[2018-09-01] MEDS: SODIUM CHLORIDE 0.9% 250 ML IV PRN ×4 (15:30→15:33)
[2018-09-01] MEDS: MORPHINE 10 MG/1 ML VIAL IV PRN ×3 (15:51→23:20)
[2018-09-01 17:09] LABS: ABG Base Excess -0.4 MMOL/L (-2.5-2.5); ABG HCO3 24.3 MMOL/L (20-26); ABG Oxygen Saturation 98.2 % (95-100); ABG PH 7.402 (7.35-7.45); ABG PO2 152.3 MM HG (80-95); ABG TCO2 25.6 MMOL/L (23-27); Glucose Heart Surgery 111 MG/DL (74-106); Hemoglobin Heart Surgery 11.4 G/DL (14.0-18.0); Potassium Heart/CVR 3.9 MMOL/L (3.5-5.1)
[2018-09-01] MEDS ORDERED: ASPIRIN EC 325 MG TABLET PO ONE (18:33)
[2018-09-01] MEDS: ASPIRIN EC 325 MG TABLET PO SCH (18:39)
[2018-09-01] MEDS: CEFUROXIME INJ 1,500 MG in SYRINGE 1 EACH IV SCH (18:39)
[2018-09-01] MEDS ORDERED: ASPIRIN 325 MG TABLET PO ONE (18:45)
[2018-09-01] MEDS: MORPHINE 4 MG/1 ML VIAL IV PRN (20:50)
[2018-09-02] MEDS: MORPHINE 10 MG/1 ML VIAL IV PRN ×4 (03:31→18:43)
[2018-09-02] MEDS: SODIUM CHLORIDE 0.45% 1,000 ML IV SCH ×2 (03:43→06:42)
[2018-09-02 03:49] LABS: Basophils % 0.1 % (0.0-0.8); Hematocrit 29.5 VOL% (42.0-52.0); Immature Granulocytes % 0.4 %; Immature Granulocytes Absolute 0.07 #; Lymphocytes # 1.1 10*3/uL (1.4-4.0); Lymphocytes % 6.8 % (21.2-54.2); Mean Corpuscular HGB Conc 33.9 GM/DL (32-36); Mean Corpuscular Hemoglobin 31 PG (27-34); Mean Corpuscular Volume 91.3 FL (87-102); Mean Platelet Volume 11.8 FL (9.6-12.0); Monocytes # 0.9 10*3/uL (0.11-0.8); Monocytes % 5.7 % (1.7-12.7); Neutrophils # 14.2 10*3/uL (1.4-7.4); Platelet Count 140 T/CUMM (130-400); Red Blood Count 3.23 MC/CUMM (3.8-5.5); Red Cell Distribution Width 12.6 % (9.3-17.3); White Blood Count 16.4 T/CUMM (4-12)
[2018-09-02 04:16] LABS: Calcium 8.3 MG/DL (8.5-10.1); Osmolality,Calculated 283.1 MOS/KG (273-304); Potassium 4.5 MMOL/L (3.5-5.1)
[2018-09-02 04:23] LABS: Platelet Estimate Adequate
[2018-09-02 04:24] LABS: Polychromasia Few
[2018-09-02] MEDS: MAGNESIUM SULF RIDER 2 GM in PREMIX 1 EACH IV PRN ×2 (04:26→06:17)
[2018-09-02] MEDS: CEFUROXIME INJ 1,500 MG in SYRINGE 1 EACH IV SCH ×2 (06:22→21:24)
[2018-09-02] MEDS: FUROSEMIDE 40 MG TABLET PO SCH (08:13)
[2018-09-02] MEDS: ASPIRIN EC 325 MG TABLET PO SCH (08:13)
[2018-09-02] MEDS: MORPHINE 4 MG/1 ML VIAL IV PRN (08:16)
[2018-09-02] MEDS: CHLORHEXIDINE 0.12% ORAL RINSE 60 ML BOTTLE SWISH/SPIT SCH ×2 (08:48→21:27)
[2018-09-02] MEDS ORDERED: ASPIRIN EC 325 MG TABLET PO SCH (09:00)
[2018-09-02] MEDS ORDERED: PANTOPRAZOLE 40 MG VIAL IV SCH (09:00)
[2018-09-02] MEDS: CLOPIDOGREL 75 MG TABLET PO SCH (11:52)
[2018-09-02] MEDS: ERGOCALCIFEROL 50,000 UNIT CAPSULE PO SCH (11:53)
[2018-09-02] MEDS: INSULIN REGULAR 100 UNIT/ML SUBCUT SCH ×3 (11:53→21:23)
[2018-09-02] MEDS ORDERED: KETOROLAC 30 MG/1 ML VIAL IV ONE (14:03)
[2018-09-02] MEDS ORDERED: CEFUROXIME INJ 1,500 MG in SYRINGE 1 EACH IV SCH (21:00)
[2018-09-02] MEDS: diphenhydrAMINE CAP 50 MG CAPSULE PO PRN (21:23)
[2018-09-02] MEDS: CARVEDILOL 3.125 MG TABLET PO SCH (21:23)
[2018-09-02] MEDS: ATORVASTATIN 40 MG TABLET PO SCH (21:23)
[2018-09-03 03:57] LABS: Basophils % 0.1 % (0.0-0.8); Hematocrit 27.8 VOL% (42.0-52.0); Hemoglobin 9.4 GM/DL (14.0-18.0); Immature Granulocytes % 0.6 %; Immature Granulocytes Absolute 0.08 #; Lymphocytes % 7.2 % (21.2-54.2); Mean Corpuscular HGB Conc 33.8 GM/DL (32-36); Mean Corpuscular Hemoglobin 31 PG (27-34); Mean Corpuscular Volume 91.1 FL (87-102); Mean Platelet Volume 12.4 FL (9.6-12.0); Monocytes # 0.9 10*3/uL (0.11-0.8); Monocytes % 6.8 % (1.7-12.7); Neutrophils # 11.8 10*3/uL (1.4-7.4); Neutrophils % 85.3 % (38.7-73.9); Platelet Count 130 T/CUMM (130-400); Red Blood Count 3.05 MC/CUMM (3.8-5.5); Red Cell Distribution Width 12.8 % (9.3-17.3); White Blood Count 13.8 T/CUMM (4-12)
[2018-09-03 04:20] LABS: Calcium 8.4 MG/DL (8.5-10.1); Osmolality,Calculated 289.4 MOS/KG (273-304); Potassium 4.7 MMOL/L (3.5-5.1)
[2018-09-03] MEDS: INSULIN REGULAR 100 UNIT/ML SUBCUT SCH ×5 (07:09→21:30)
[2018-09-03] MEDS: MORPHINE 10 MG/1 ML VIAL IV PRN (07:55)
[2018-09-03] MEDS: ACETAMINOPHEN 325 MG TABLET PO PRN (08:40)
[2018-09-03] MEDS: CLOPIDOGREL 75 MG TABLET PO SCH (09:58)
[2018-09-03] MEDS: FUROSEMIDE 40 MG TABLET PO SCH (09:58)
[2018-09-03] MEDS: CARVEDILOL 3.125 MG TABLET PO SCH (09:58)
[2018-09-03] MEDS: PANTOPRAZOLE 40 MG TABLET PO SCH (09:58)
[2018-09-03] MEDS: ASPIRIN EC 325 MG TABLET PO SCH (09:58)
[2018-09-03] MEDS: CHLORHEXIDINE 0.12% ORAL RINSE 60 ML BOTTLE SWISH/SPIT SCH ×2 (10:05→21:32)
[2018-09-03] MEDS ORDERED: DOCUSATE SODIUM 100 MG CAPSULE PO PRN (11:27)
[2018-09-03] MEDS ORDERED: BISACODYL 5 MG TABLET PO PRN (11:28)
[2018-09-03] MEDS: VENLAFAXINE 75 MG TABLET PO SCH ×2 (11:29→21:30)
[2018-09-03 11:31] LABS: Apearance,Urine CLEAR (Clear); Bilirubin,Urine Negative (Negative); Blood, Urine Moderate mg/dL (Negative); Glucose,Urine (UA) >=500 mg/dL (Negative); Ketones,Urine Negative (Negative); Nitrite,Urine Negative (Negative); Protein,Urine Negative; RBC,Urine 20 /HPF (0-4); Squamous Epithelial Cell,Urine Occasional /HPF (0-10); Urine Color Yellow (Yellow); Urine Specific Gravity 1.018 (1.001-1.035); Urine Urobilinogen < 2.0 EU/DL (0.2-1.0); WBC,Urine 2 /HPF (0-6)
[2018-09-03] MEDS: BISACODYL 5 MG TABLET PO SCH (12:29)
[2018-09-03] MEDS: glipiZIDE 5 MG TABLET PO SCH (16:23)
[2018-09-03] MEDS ORDERED: glipiZIDE 5 MG TABLET PO SCH (16:30)
[2018-09-03] MEDS: MORPHINE 4 MG/1 ML VIAL IV PRN (20:15)
[2018-09-03] MEDS: CARVEDILOL 6.25 MG TABLET PO SCH (21:30)
[2018-09-03] MEDS: diphenhydrAMINE CAP 50 MG CAPSULE PO PRN (21:30)
[2018-09-03] MEDS: TAMSULOSIN 0.4 MG CAPSULE PO SCH (21:30)
[2018-09-03] MEDS: ATORVASTATIN 40 MG TABLET PO SCH (21:30)
[2018-09-03] MEDS: DOCUSATE SODIUM 100 MG CAPSULE PO SCH (21:30)
[2018-09-04] MEDS: INSULIN REGULAR 100 UNIT/ML SUBCUT SCH ×6 (01:02→21:18)
[2018-09-04] MEDS: ACETAMINOPHEN 325 MG TABLET PO PRN (05:15)
[2018-09-04 05:58] LABS: Basophils % 0.3 % (0.0-0.8); Eosinophils # 0.3 10*3/uL (0.0-0.87); Eosinophils % 2.4 % (0.00-10.9); Hematocrit 25.3 VOL% (42.0-52.0); Hemoglobin 8.4 GM/DL (14.0-18.0); Immature Granulocytes % 0.7 %; Immature Granulocytes Absolute 0.08 #; Lymphocytes # 2.4 10*3/uL (1.4-4.0); Lymphocytes % 20.5 % (21.2-54.2); Mean Corpuscular HGB Conc 33.2 GM/DL (32-36); Mean Corpuscular Hemoglobin 31 PG (27-34); Mean Corpuscular Volume 92.3 FL (87-102); Mean Platelet Volume 12.4 FL (9.6-12.0); Monocytes # 0.9 10*3/uL (0.11-0.8); Monocytes % 7.3 % (1.7-12.7); Neutrophils % 68.8 % (38.7-73.9); Platelet Count 140 T/CUMM (130-400); Red Blood Count 2.74 MC/CUMM (3.8-5.5); Red Cell Distribution Width 12.7 % (9.3-17.3); White Blood Count 11.7 T/CUMM (4-12)
[2018-09-04 06:29] LABS: Calcium 8.1 MG/DL (8.5-10.1); Osmolality,Calculated 284.1 MOS/KG (273-304); Potassium 3.4 MMOL/L (3.5-5.1)
[2018-09-04] MEDS ORDERED: POTASSIUM CHLORIDE 20 MEQ TABLET PO ONE (08:23)
[2018-09-04] MEDS: VENLAFAXINE 75 MG TABLET PO SCH ×2 (10:09→21:18)
[2018-09-04] MEDS: ASPIRIN EC 325 MG TABLET PO SCH (10:09)
[2018-09-04] MEDS: PANTOPRAZOLE 40 MG TABLET PO SCH (10:10)
[2018-09-04] MEDS: glipiZIDE 5 MG TABLET PO SCH ×2 (10:10→17:09)
[2018-09-04] MEDS: CLOPIDOGREL 75 MG TABLET PO SCH (10:11)
[2018-09-04] MEDS: CARVEDILOL 6.25 MG TABLET PO SCH ×2 (10:11→17:09)
[2018-09-04] MEDS: DOCUSATE SODIUM 100 MG CAPSULE PO SCH ×2 (10:11→21:18)
[2018-09-04] MEDS: BISACODYL 5 MG TABLET PO SCH (10:11)
[2018-09-04] MEDS: FUROSEMIDE 40 MG TABLET PO SCH (10:19)
[2018-09-04] MEDS: CHLORHEXIDINE 0.12% ORAL RINSE 60 ML BOTTLE SWISH/SPIT SCH ×2 (10:19→21:18)
[2018-09-04] MEDS: TAMSULOSIN 0.4 MG CAPSULE PO SCH (21:18)
[2018-09-04] MEDS: ATORVASTATIN 40 MG TABLET PO SCH (21:18)
[2018-09-04] MEDS: MAGNESIUM SULF RIDER 2 GM in PREMIX 1 EACH IV PRN ×2 (21:18→23:32)
[2018-09-05] MEDS: traMADol 50 MG TABLET PO PRN ×2 (00:07→23:57)
[2018-09-05] MEDS: INSULIN REGULAR 100 UNIT/ML SUBCUT SCH ×6 (00:07→21:14)
[2018-09-05] MEDS: glipiZIDE 5 MG TABLET PO SCH ×2 (07:54→16:31)
[2018-09-05] MEDS: ERGOCALCIFEROL 50,000 UNIT CAPSULE PO SCH (08:05)
[2018-09-05] MEDS: VENLAFAXINE 75 MG TABLET PO SCH ×2 (08:05→21:18)
[2018-09-05] MEDS: FUROSEMIDE 40 MG TABLET PO SCH (08:05)
[2018-09-05] MEDS: CARVEDILOL 6.25 MG TABLET PO SCH ×2 (08:05→16:31)
[2018-09-05] MEDS: BISACODYL 5 MG TABLET PO SCH (08:05)
[2018-09-05] MEDS: CLOPIDOGREL 75 MG TABLET PO SCH (08:05)
[2018-09-05] MEDS: ASPIRIN EC 325 MG TABLET PO SCH (08:06)
[2018-09-05] MEDS: PANTOPRAZOLE 40 MG TABLET PO SCH (08:06)
[2018-09-05] MEDS: CHLORHEXIDINE 0.12% ORAL RINSE 60 ML BOTTLE SWISH/SPIT SCH ×2 (08:08→21:20)
[2018-09-05] MEDS: DOCUSATE SODIUM 100 MG CAPSULE PO SCH ×2 (08:30→21:15)
[2018-09-05] MEDS: IRON (CARBONYL) 45 MG TABLET PO SCH ×2 (14:52→21:18)
[2018-09-05] MEDS: ATORVASTATIN 40 MG TABLET PO SCH (21:15)
[2018-09-05] MEDS: TAMSULOSIN 0.4 MG CAPSULE PO SCH (21:15)
[2018-09-05] MEDS: ACETAMINOPHEN 325 MG TABLET PO PRN (23:56)
[2018-09-06] MEDS: INSULIN REGULAR 100 UNIT/ML SUBCUT SCH ×6 (01:15→21:06)
[2018-09-06 05:57] LABS: Basophils % 0.4 % (0.0-0.8); Eosinophils # 0.8 10*3/uL (0.0-0.87); Eosinophils % 8.4 % (0.00-10.9); Hematocrit 24.4 VOL% (42.0-52.0); Immature Granulocytes % 0.9 %; Immature Granulocytes Absolute 0.09 #; Lymphocytes # 2.3 10*3/uL (1.4-4.0); Lymphocytes % 23.3 % (21.2-54.2); Mean Corpuscular HGB Conc 32.8 GM/DL (32-36); Mean Corpuscular Hemoglobin 30 PG (27-34); Mean Corpuscular Volume 92.8 FL (87-102); Mean Platelet Volume 12.1 FL (9.6-12.0); Monocytes # 0.7 10*3/uL (0.11-0.8); Monocytes % 7.2 % (1.7-12.7); Neutrophils % 59.8 % (38.7-73.9); Platelet Count 172 T/CUMM (130-400); Red Blood Count 2.63 MC/CUMM (3.8-5.5); Red Cell Distribution Width 12.9 % (9.3-17.3); White Blood Count 9.9 T/CUMM (4-12)
[2018-09-06 06:22] LABS: Calcium 8.3 MG/DL (8.5-10.1); Osmolality,Calculated 284.3 MOS/KG (273-304); Potassium 4.3 MMOL/L (3.5-5.1)
[2018-09-06 06:23] LABS: Calcium 8.3 MG/DL (8.5-10.1); Osmolality,Calculated 284.3 MOS/KG (273-304); Potassium 4.3 MMOL/L (3.5-5.1)
[2018-09-06] MEDS ORDERED: FUROSEMIDE 40 MG/4 ML VIAL IV ONE (07:52)
[2018-09-06] MEDS: VENLAFAXINE 75 MG TABLET PO SCH ×2 (08:45→21:05)
[2018-09-06] MEDS: BISACODYL 5 MG TABLET PO SCH (08:46)
[2018-09-06] MEDS: FUROSEMIDE 40 MG TABLET PO SCH (08:46)
[2018-09-06] MEDS: DOCUSATE SODIUM 100 MG CAPSULE PO SCH ×2 (08:46→21:04)
[2018-09-06] MEDS: PANTOPRAZOLE 40 MG TABLET PO SCH (08:46)
[2018-09-06] MEDS: IRON (CARBONYL) 45 MG TABLET PO SCH ×2 (08:46→21:05)
[2018-09-06] MEDS: ASPIRIN EC 325 MG TABLET PO SCH (08:46)
[2018-09-06] MEDS: CLOPIDOGREL 75 MG TABLET PO SCH (08:46)
[2018-09-06] MEDS: glipiZIDE 5 MG TABLET PO SCH ×2 (08:46→16:10)
[2018-09-06] MEDS: CARVEDILOL 6.25 MG TABLET PO SCH ×2 (08:46→16:10)
[2018-09-06] MEDS: CHLORHEXIDINE 0.12% ORAL RINSE 60 ML BOTTLE SWISH/SPIT SCH ×2 (09:11→21:10)
[2018-09-06] MEDS: traMADol 50 MG TABLET PO PRN (18:37)
[2018-09-06] MEDS: TAMSULOSIN 0.4 MG CAPSULE PO SCH (21:04)
[2018-09-06] MEDS: ATORVASTATIN 40 MG TABLET PO SCH (21:05)
[2018-09-07] MEDS: INSULIN REGULAR 100 UNIT/ML SUBCUT SCH ×4 (01:37→11:51)
[2018-09-07] MEDS: CLOPIDOGREL 75 MG TABLET PO SCH (09:28)
[2018-09-07] MEDS: FUROSEMIDE 40 MG TABLET PO SCH (09:28)
[2018-09-07] MEDS: DOCUSATE SODIUM 100 MG CAPSULE PO SCH (09:28)
[2018-09-07] MEDS: BISACODYL 5 MG TABLET PO SCH (09:28)
[2018-09-07] MEDS: glipiZIDE 5 MG TABLET PO SCH (09:28)
[2018-09-07] MEDS: VENLAFAXINE 75 MG TABLET PO SCH (09:28)
[2018-09-07] MEDS: IRON (CARBONYL) 45 MG TABLET PO SCH (09:28)
[2018-09-07] MEDS: PANTOPRAZOLE 40 MG TABLET PO SCH (09:28)
[2018-09-07] MEDS: CARVEDILOL 6.25 MG TABLET PO SCH (09:28)
[2018-09-07] MEDS: CHLORHEXIDINE 0.12% ORAL RINSE 60 ML BOTTLE SWISH/SPIT SCH (09:33)
[2018-09-07] MEDS: ASPIRIN EC 325 MG TABLET PO SCH (09:33)
[2018-09-07 11:28] VITALS: BP 90/57
[2018-09-07] MEDS ORDERED: INFLUENZA VIRUS VACCINE 0.5 ML SYRINGE IM ONE (12:30)
== END 2018-09-07 13:10 | disposition home health service (06) | DRG 234 ==
LOC: EDBD → EDUNIT# → N.ED 10:22 → N.EDINP 12:31 → SUATTDRO 12:31 → N.TELES 12:56 → N.CVR 09-01 08:18 → N.TELES 09-02 10:41
PROVIDERS: ADMIT Internal Medicine Nephrology
PROC: CLCCHCL (ICD-10-PCS; 2018-08-31 10:15)

== ENCOUNTER 2019-02-08 17:00 | Observation (INO) ==
[2019-02-08] MEDS ORDERED: ASPIRIN 325 MG TABLET PO STA (18:21)
[2019-02-08] MEDS ORDERED: ONDANSETRON 4 MG/2 ML VIAL IV STA (18:21)
[2019-02-08] MEDS ORDERED: ALUM/MAG/SIMETH/LIDO VISC 1:1 30 ML BOTTLE PO STA (18:21)
[2019-02-08] MEDS ORDERED: MORPHINE 4 MG/1 ML VIAL IV STA (18:21)
[2019-02-08] MEDS ORDERED: NITROGLYCERIN 2% OINT 1 INCH/GM PACK TOP STA (18:21)
[2019-02-08 18:37] LABS: Basophils # 0.1 10*3/uL (0.0-0.2); Basophils % 0.7 % (0.0-0.8); Eosinophils # 0.5 10*3/uL (0.0-0.87); Eosinophils % 4.3 % (0.00-10.9); Hemoglobin 16.5 GM/DL (14.0-18.0); Immature Granulocytes % 0.5 %; Immature Granulocytes Absolute 0.06 #; Lymphocytes # 2.5 10*3/uL (1.4-4.0); Lymphocytes % 20.8 % (21.2-54.2); Mean Corpuscular HGB Conc 33.7 GM/DL (32-36); Mean Corpuscular Hemoglobin 30 PG (27-34); Mean Platelet Volume 11.8 FL (9.6-12.0); Monocytes # 0.7 10*3/uL (0.11-0.8); Monocytes % 5.6 % (1.7-12.7); Neutrophils # 8.1 10*3/uL (1.4-7.4); Neutrophils % 68.1 % (38.7-73.9); Platelet Count 232 T/CUMM (130-400); Red Blood Count 5.57 MC/CUMM (3.8-5.5); Red Cell Distribution Width 14.4 % (9.3-17.3); White Blood Count 11.9 T/CUMM (4-12)
[2019-02-08 18:45] LABS: PT Patient Result 10.5 SECS
[2019-02-08 18:59] LABS: Albumin 4.3 G/DL (3.4-5.0); Bilirubin,Total 0.4 MG/DL (0.2-1.0); Calcium 9.6 MG/DL (8.5-10.1); Potassium 4.7 MMOL/L (3.5-5.1); Total Protein 7.3 G/DL (6.4-8.3)
[2019-02-08 19:37] LABS: Barbiturates Screen,Urine Negative (Negative); Benzodiazepines Screen,Urine Negative (Negative); Cannabinoid Screen,Urine Negative (Negative); Opiate Screen,Urine Negative (Negative); Phencyclidine Screen,Urine Negative (Negative)
[2019-02-08] MEDS ORDERED: GLUCAGON 1 MG VIAL IM PRN (19:50)
[2019-02-08] MEDS ORDERED: DEXTROSE 50% 25 GM/50 ML VIAL IV PRN (19:50)
[2019-02-08] MEDS ORDERED: MORPHINE 4 MG/1 ML VIAL IV PRN (19:50)
[2019-02-08] MEDS ORDERED: ACETAMINOPHEN 325 MG TABLET PO PRN (19:50)
[2019-02-08] MEDS ORDERED: DOCUSATE SODIUM 100 MG CAPSULE PO PRN (19:50)
[2019-02-08] MEDS ORDERED: ZALEPLON 5 MG CAPSULE PO PRN (19:50)
[2019-02-08] MEDS ORDERED: ONDANSETRON 4 MG/2 ML VIAL IV PRN (19:50)
[2019-02-08] MEDS ORDERED: NITROGLYCERIN SL 0.4 MG TABLET SL PRN (19:54)
[2019-02-08] MEDS ORDERED: CYCLOBENZAPRINE 10 MG TABLET PO PRN (20:13)
[2019-02-08] MEDS ORDERED: ENOXAPARIN 40 MG/0.4 ML SYRINGE SUBCUT SCH (21:00)
[2019-02-08] MEDS: INSULIN LISPRO 100 UNIT/ML SUBCUT SCH (22:40)
[2019-02-09 00:24] LABS: Basophils # 0.1 10*3/uL (0.0-0.2); Basophils % 0.7 % (0.0-0.8); Eosinophils # 0.6 10*3/uL (0.0-0.87); Eosinophils % 5.6 % (0.00-10.9); Hematocrit 44.2 VOL% (42.0-52.0); Hemoglobin 15.1 GM/DL (14.0-18.0); Immature Granulocytes % 0.4 %; Immature Granulocytes Absolute 0.04 #; Lymphocytes # 3.2 10*3/uL (1.4-4.0); Lymphocytes % 31.2 % (21.2-54.2); Mean Corpuscular HGB Conc 34.2 GM/DL (32-36); Mean Corpuscular Hemoglobin 30 PG (27-34); Mean Corpuscular Volume 87.7 FL (87-102); Mean Platelet Volume 11.7 FL (9.6-12.0); Monocytes # 0.6 10*3/uL (0.11-0.8); Monocytes % 5.8 % (1.7-12.7); Neutrophils # 5.7 10*3/uL (1.4-7.4); Neutrophils % 56.3 % (38.7-73.9); Platelet Count 199 T/CUMM (130-400); Red Blood Count 5.04 MC/CUMM (3.8-5.5); Red Cell Distribution Width 14.5 % (9.3-17.3); White Blood Count 10.1 T/CUMM (4-12)
[2019-02-09 00:40] LABS: Calcium 8.6 MG/DL (8.5-10.1); Osmolality,Calculated 290.8 MOS/KG (273-304); Potassium 4.2 MMOL/L (3.5-5.1)
[2019-02-09] MEDS ORDERED: INSULIN GLARGINE 100 UNIT/ML SUBCUT SCH (10:00)
[2019-02-09] MEDS ORDERED: KETOROLAC 30 MG/1 ML VIAL IV ONE (10:40)
[2019-02-09] MEDS: INSULIN LISPRO 100 UNIT/ML SUBCUT SCH ×2 (11:11→14:05)
[2019-02-09 11:51] VITALS: BP 134/80
[2019-02-09] MEDS ORDERED: GABAPENTIN 300 MG CAPSULE PO SCH (15:00)
[2019-02-09] MEDS ORDERED: VENLAFAXINE 75 MG TABLET PO SCH (17:00)
[2019-02-09] MEDS ORDERED: CARVEDILOL 6.25 MG TABLET PO SCH (17:00)
[2019-02-09] MEDS ORDERED: metFORMIN 500 MG TABLET PO SCH (17:00)
[2019-02-09] MEDS ORDERED: POTASSIUM CHLORIDE 20 MEQ TABLET PO SCH (21:00)
[2019-02-09] MEDS ORDERED: MAGNESIUM OXIDE 400 MG TABLET PO SCH (21:00)
[2019-02-09] MEDS ORDERED: ASCORBIC ACID 500 MG TABLET PO SCH (21:00)
[2019-02-09] MEDS ORDERED: IRON (CARBONYL) 45 MG TABLET PO SCH (21:00)
[2019-02-09] MEDS ORDERED: ATORVASTATIN 40 MG TABLET PO SCH (21:00)
[2019-02-10] MEDS ORDERED: FUROSEMIDE 40 MG TABLET PO SCH (09:00)
[2019-02-10] MEDS ORDERED: TAMSULOSIN 0.4 MG CAPSULE PO SCH (09:00)
[2019-02-10] MEDS ORDERED: FENOFIBRATE 145 MG TABLET PO SCH (09:00)
[2019-02-10] MEDS ORDERED: PANTOPRAZOLE 40 MG TABLET PO SCH (09:00)
[2019-02-10] MEDS ORDERED: ASPIRIN EC 325 MG TABLET PO SCH (09:00)
[2019-02-10] MEDS ORDERED: ALLOPURINOL 300 MG TABLET PO SCH (09:00)
== END 2019-02-09 15:40 | disposition home or self-care (01) ==
LOC: N.EDINP 17:00 → N.ED 17:00 → N.TELES 21:32
PROVIDERS: ADMIT Internal Medicine; ATTEND Internal Medicine

== ENCOUNTER 2019-08-25 01:56 | Observation (INO) ==
[2019-08-25] MEDS ORDERED: MORPHINE 4 MG/1 ML VIAL IV STA (02:36)
[2019-08-25] MEDS ORDERED: NITROGLYCERIN 2% OINT 1 INCH/GM PACK TOP STA (02:36)
[2019-08-25] MEDS ORDERED: ASPIRIN 325 MG TABLET PO STA (02:36)
[2019-08-25] MEDS ORDERED: ONDANSETRON 4 MG/2 ML VIAL IV STA (02:36)
[2019-08-25] MEDS ORDERED: ALUM/MAG/SIMETH/LIDO VISC 1:1 30 ML BOTTLE PO STA (02:36)
[2019-08-25 02:46] LABS: Basophils # 0.1 10*3/uL (0.0-0.2); Basophils % 0.7 % (0.0-0.8); Eosinophils # 0.5 10*3/uL (0.0-0.87); Eosinophils % 5.2 % (0.00-10.9); Hematocrit 43.5 VOL% (42.0-52.0); Hemoglobin 14.7 GM/DL (14.0-18.0); Immature Granulocytes % 0.5 %; Immature Granulocytes Absolute 0.04 #; Lymphocytes # 2.4 10*3/uL (1.4-4.0); Lymphocytes % 26.7 % (21.2-54.2); Mean Corpuscular HGB Conc 33.8 GM/DL (32-36); Mean Corpuscular Volume 93.8 FL (87-102); Mean Platelet Volume 11.6 FL (9.6-12.0); Monocytes % 6.1 % (1.7-12.7); Neutrophils % 60.8 % (38.7-73.9); Platelet Count 162 T/CUMM (130-400); Red Blood Count 4.64 MC/CUMM (3.8-5.5); Red Cell Distribution Width 13.2 % (9.3-17.3); White Blood Count 8.9 T/CUMM (4-12)
[2019-08-25 02:53] LABS: PT Patient Result 10.4 SECS (9.6-12.2)
[2019-08-25 02:58] LABS: Alanine Aminotransferase 16 U/L (16-61); Albumin 3.8 G/DL (3.4-5.0); Alkaline Phosphatase 79 U/L (45-117); Aspartate Amino Transferase 11 U/L (0-37); Bilirubin,Total < 0.39 MG/DL (0.2-1.0); Blood Urea Nitrogen 22 MG/DL (7-18); Calcium 8.6 MG/DL (8.5-10.1); Estimated Glom Filtration Rate 88 ML/MIN; Glucose 202 MG/DL (74-106); Osmolality,Calculated 294.8 MOS/KG (273-304); Total Protein 5.8 G/DL (6.4-8.3)
[2019-08-25] MEDS ORDERED: MAGNESIUM SULF RIDER 2 GM in PREMIX 1 EACH IV STA (03:05)
[2019-08-25] MEDS ORDERED: NICOTINE 21 MG/24 HR PATCH TRANSDERM PRN (03:32)
[2019-08-25] MEDS ORDERED: MAGNESIUM SULF RIDER 2 GM in PREMIX 1 EACH IV PRN (03:32)
[2019-08-25] MEDS ORDERED: MAGNESIUM SULF RIDER 4 GM in PREMIX 1 EACH IV PRN (03:32)
[2019-08-25] MEDS ORDERED: ACETAMINOPHEN 325 MG TABLET PO PRN (03:32)
[2019-08-25] MEDS ORDERED: ONDANSETRON 4 MG/2 ML VIAL IV PRN (03:32)
[2019-08-25] MEDS ORDERED: GLUCAGON 1 MG VIAL IM PRN (03:35)
[2019-08-25] MEDS ORDERED: DEXTROSE 50% 25 GM/50 ML VIAL IV PRN (03:35)
[2019-08-25] MEDS ORDERED: INFLUENZA VIRUS VACCINE 0.5 ML SYRINGE IM ONE (06:25)
[2019-08-25 06:39] LABS: Risk Ratio 5.48; VLDL CHOLESTEROL 33.8 MG/DL
[2019-08-25] MEDS ORDERED: FUROSEMIDE 40 MG TABLET PO SCH (09:00)
[2019-08-25] MEDS ORDERED: ASPIRIN EC 325 MG TABLET PO SCH (09:00)
[2019-08-25] MEDS ORDERED: CLOPIDOGREL 75 MG TABLET PO SCH (09:00)
[2019-08-25] MEDS: INSULIN REGULAR 100 UNIT/ML SUBCUT SCH ×4 (09:28→21:42)
[2019-08-25] MEDS: carvediloL 6.25 MG TABLET PO SCH ×2 (09:45→16:57)
[2019-08-25] MEDS: MORPHINE 4 MG/1 ML VIAL IV PRN ×2 (10:00→16:57)
[2019-08-25] MEDS ORDERED: INSULIN GLARGINE 100 UNIT/ML SUBCUT SCH (12:00)
[2019-08-25] MEDS ORDERED: ATORVASTATIN 40 MG TABLET PO SCH (21:00)
[2019-08-25] MEDS: KETOROLAC 30 MG/1 ML VIAL IV SCH (21:42)
[2019-08-26] MEDS: KETOROLAC 30 MG/1 ML VIAL IV SCH ×2 (00:15→06:05)
[2019-08-26 04:32] LABS: Basophils # 0.1 10*3/uL (0.0-0.2); Basophils % 0.8 % (0.0-0.8); Eosinophils # 0.5 10*3/uL (0.0-0.87); Eosinophils % 7.2 % (0.00-10.9); Hematocrit 46.1 VOL% (42.0-52.0); Hemoglobin 15.2 GM/DL (14.0-18.0); Immature Granulocytes % 0.5 %; Immature Granulocytes Absolute 0.04 #; Lymphocytes # 2.1 10*3/uL (1.4-4.0); Lymphocytes % 28.1 % (21.2-54.2); Mean Corpuscular Volume 93.9 FL (87-102); Mean Platelet Volume 11.7 FL (9.6-12.0); Monocytes % 6.5 % (1.7-12.7); Neutrophils % 56.9 % (38.7-73.9); Platelet Count 136 T/CUMM (130-400); Red Blood Count 4.91 MC/CUMM (3.8-5.5); White Blood Count 7.5 T/CUMM (4-12)
[2019-08-26 05:02] LABS: Calcium 8.3 MG/DL (8.5-10.1); Osmolality,Calculated 286.4 MOS/KG (273-304)
[2019-08-26] MEDS ORDERED: LEVOTHYROXINE 25 MCG TABLET PO SCH (06:30)
[2019-08-26 08:18] VITALS: BP 117/64
== END 2019-08-26 09:35 | disposition left against medical advice (07) ==
LOC: EDBD → EDUNIT# → N.ED 01:56 → N.EDINP 01:56 → N.2W 04:18
PROVIDERS: ADMIT Hospitalist; ATTEND Hospitalist